=== PATIENT | female | born 1935 | race Caucasian/White ===

== ENCOUNTER → 2017-01-25 | Outpatient (CLI) | payer MEDICARE, OTHER | LOC: OD 10:26 | PROVIDERS: ATTEND Internal Medicine | DX: R07.2 Precordial pain (principal); E78.4 Other hyperlipidemia; I48.0 Paroxysmal atrial fibrillation; I10 Essential (primary) hypertension; E78.00 Pure hypercholesterolemia, unspecified; R01.1 Cardiac murmur, unspecified; R09.89 Other specified symptoms and signs involving the circulatory and respiratory systems; E11.9 Type 2 diabetes mellitus without complications; I50.32 Chronic diastolic (congestive) heart failure; E78.5 Hyperlipidemia, unspecified; Z79.899 Other long term (current) drug therapy | CPT/HCPCS: 36415; 84132 ==

== ENCOUNTER → 2018-04-28 | Outpatient (CLI) | payer MEDICARE, OTHER ==
[2018-04-28 13:36] LABS: ALANINE AMINOTRANSFERASE 17 U/L (9-52); ALBUMIN 3.6 g/dL (3.5-5.0); ALKALINE PHOSPHATASE 60 U/L (38-126); ANION GAP 11 (5-19); ASPARTATE AMINO TRANSFERASE 33 U/L (14-36); BILIRUBIN,DIRECT 0.4 mg/dL (0.0-0.4); BILIRUBIN,TOTAL 0.5 mg/dL (0.2-1.3); BLOOD UREA NITROGEN 37 mg/dL (7-20); CALCIUM 9.9 mg/dL (8.4-10.2); CARBON DIOXIDE 27 mmol/L (22-30); CHLORIDE 107 mmol/L (98-107); CHOLESTEROL 186.16 mg/dL (0-200); GLUCOSE 98 mg/dL (75-110); POTASSIUM 5.3 mmol/L (3.6-5.0); SODIUM 144.6 mmol/L (137-145); TOTAL PROTEIN 7.2 g/dL (6.3-8.2); TRIGLYCERIDES 67 mg/dL (<150)
[2018-04-28 13:47] LABS: DIRECT LDL 63 mg/dL (<100)
== END ==
LOC: OD 12:09
PROVIDERS: ATTEND Internal Medicine
DX: E11.9 Type 2 diabetes mellitus without complications (principal); I48.0 Paroxysmal atrial fibrillation; I11.0 Hypertensive heart disease with heart failure; I50.32 Chronic diastolic (congestive) heart failure; R01.1 Cardiac murmur, unspecified; R09.89 Other specified symptoms and signs involving the circulatory and respiratory systems; R06.09 Other forms of dyspnea; Z79.899 Other long term (current) drug therapy
CPT/HCPCS: 36415; 80053; 80061

== ENCOUNTER 2018-11-09 00:38 | Emergency (ER) | payer MEDICARE, OTHER ==
[2018-11-09 01:04] LABS: ABSOLUTE BASOPHILS # (AUTO) 0.1 10^3/uL (0.0-0.2); ABSOLUTE EOSINOPHILS # (AUTO) 0.5 10^3/uL (0.0-0.6); ABSOLUTE LYMPHOCYTES (AUTO) 3.8 10^3/uL (0.5-4.7); ABSOLUTE MONOCYTES (AUTO) 1.7 10^3/uL (0.1-1.4); ABSOLUTE NEUT (AUTO) 7.8 10^3/uL (1.7-8.2); BASOPHILS % (AUTO) 0.5 % (0-2); EOSINOPHILS % (AUTO) 3.7 % (0-6); HEMATOCRIT 34.4 % (36.0-47.0); HEMOGLOBIN 11.1 g/dL (12.0-15.5); LYMPHOCYTES % (AUTO) 27.2 % (13-45); MEAN CORPUSCULAR HEMOGLOBIN 29.5 pg (27.0-33.4); MEAN CORPUSCULAR HGB CONC 32.1 g/dL (32.0-36.0); MEAN CORPUSCULAR VOLUME 92 fl (80-97); MONOCYTES % (AUTO) 12.4 % (3-13); PLATELET COUNT 364 10^3/uL (150-450); RED BLOOD COUNT 3.75 10^6/uL (3.72-5.28); RED CELL DISTRIBUTION WIDTH 15.1 % (11.5-14.0); SEGMENTED NEUTROPHILS % (AUTO) 56.2 % (42-78); TOTAL CELLS COUNTED % (AUTO) 100 %; WHITE BLOOD COUNT 13.9 10^3/uL (4.0-10.5)
--- NOTE | 2018-11-09 01:27 | RADIOLOGY REPORT (SQ) ---
EXAM DESCRIPTION: XR CHEST 1 VIEW COMPLETED DATE/TME: 11/09/2018 00:45 CLINICAL HISTORY: 83 years, Female, sob COMPARISON: 01/30/2016 chest NUMBER OF VIEWS: 1 TECHNIQUE: Portable chest LIMITATIONS: None. FINDINGS: Cardiomegaly with atheromatous change thoracic aorta. Osteopenia. Stable postsurgical change. No pneumothorax. Lungs are clear IMPRESSION: Stable cardiomegaly and postsurgical change copyright 2010 [employer]- All Rights Reserved
[2018-11-09 01:28] LABS: ANION GAP 10 (5-19); BLOOD UREA NITROGEN 29 mg/dL (7-20); CALCIUM 10.5 mg/dL (8.4-10.2); CARBON DIOXIDE 30 mmol/L (22-30); CHLORIDE 100 mmol/L (98-107); GLUCOSE 112 mg/dL (75-110); POTASSIUM 4.6 mmol/L (3.6-5.0); SODIUM 139.5 mmol/L (137-145)
[2018-11-09 01:42] LABS: NT PRO BNP 2790 pg/mL (<450); TROPONIN I < 0.012 ng/mL
[2018-11-09] MEDS ORDERED: PREDNISONE 20 MG TABLET PO ONE (03:50)
--- NOTE | 2018-11-09 03:50 | ER Document Report ---
ED General - General Chief Complaint: Breathing Difficulty Stated Complaint: TROUBLE BREATHING Time Seen by Provider: 11/09/18 00:45 Primary Care Provider: ISAURA KESSLER MD [Primary Care Provider] - Follow up as needed Notes: Patient is an 83-year-old female with a past medical history of asthma, hypertension, presents complaining of wheezing and feeling short of breath. Apparently she was saturating 87% for EMS, received multiple neb laser treatments and states that her work of breathing has improved significantly and she no longer feels significantly short of breath. Denies any associated chest pain. Has had some mild upper a story symptoms over the last 1 week including nasal congestion and cough. She has Xopenex inhalers at home which she did not use tonight due to concerns that this could send her into A. fib. She denies any lower extremity swelling, chest pain or orthopnea. She has not seen her primary care physician regarding today's concerns. Denies fever or constitutional symptoms. Has had similar symptoms in the past with asthma exacerbations. TRAVEL OUTSIDE OF THE [place] IN LAST 30 DAYS: No - Related Data Allergies/Adverse Reactions: diphenhydramine HCl [From Benadryl] Allergy (Verified 12/14/15 19:49) erythromycin base [Erythromycin Base] Allergy (Verified 12/14/15 19:49) ibuprofen [From Motrin] Allergy (Verified 12/14/15 19:49) oseltamivir phosphate [From Tamiflu] Allergy (Verified 12/14/15 19:48) Past Medical History - General Information source: Patient - Social History Smoking Status: Never Smoker Chew tobacco use (# tins/day): No Frequency of alcohol use: None Drug Abuse: None Lives with: Spouse/Significant other Family History: Reviewed & Not Pertinent Patient has suicidal ideation: No Patient has homicidal ideation: No - Past Medical History Cardiac Medical History: Reports: Hx Atrial Fibrillation, Hx Hypertension Renal/ Medical History: Denies: Hx Peritoneal Dialysis Past Surgical History: Reports: Hx Breast Surgery - Left mastectomy Review of Systems - Review of Systems Notes: Constitutional: Negative for fever. HENT: Negative for sore throat. Eyes: Negative for visual changes. Cardiovascular: Negative for chest pain. Respiratory: Positive for shortness of breath. Gastrointestinal: Negative for abdominal pain, vomiting or diarrhea. Genitourinary: Negative for dysuria. Musculoskeletal: Negative for back pain. Skin: Negative for rash. Neurological: Negative for headaches, weakness or numbness. 10 point ROS negative except as marked above and in HPI. Physical Exam - Vital signs Vitals: Pulse Ox 100 11/09/18 00:49 Interpretation: Normal Notes: PHYSICAL EXAMINATION: GENERAL: Well-appearing, well-nourished and in no acute distress. HEAD: Atraumatic, normocephalic. EYES: Pupils equal round and reactive to light, extraocular movements intact, sclera anicteric, conjunctiva are normal. ENT: nares patent, oropharynx clear without exudates. Moist mucous membranes. NECK: Normal range of motion, supple without lymphadenopathy LUNGS: Breath sounds clear to auscultation bilaterally and equal. Faint expiratory wheezing HEART: Regular rate and rhythm without murmurs ABDOMEN: Soft, nontender, normoactive bowel sounds. No guarding, no rebound. No masses appreciated. EXTREMITIES: Normal range of motion, no pitting or edema. No cyanosis. NEUROLOGICAL: No focal neurological deficits. Moves all extremities spontaneously and on command. PSYCH: Normal mood, normal affect. SKIN: Warm, Dry, normal turgor, no rashes or lesions noted. T Course - Re-evaluation Re-evalutation: 11/09/18 03:50 Patient presents with a mild exacerbation of their baseline asthma. Mild wheezing at time of presentation but vitals do not show significant hypoxemia or tachypnea. No retractions. Patient did clinically improve after receiving nebulizers here in the emergency department. Chest x-ray without evidence of an acute pneumonia. Based on patient's overall reassuring assessment, I believe they are stable for outpatient management with steroids. I do not suspect an acute alternative pathology at this time based on history and exam including acute pulmonary embolus, ACS, pneumothorax, or aortic dissection. BNP mildly elevated although no evidence of pulmonary edema on chest x-ray. No other stigmata of fluid overload. Patient constantly saturates between 94-96% on room air. At this time will discharge with return precautions and follow-up recommendations. Verbal discharge instructions given a the bedside and opportunity for questions given. Medication warnings reviewed. Patient is in agreement with this plan and has verbalized understanding of return precautions and the need for primary care follow-up in the next 24-72 hours. - Vital Signs Vital signs: Temp Pulse Resp BP Pulse Ox 21 H 173/57 H 99 11/09/18 00:53 11/09/18 00:53 11/09/18 01:04 - Laboratory Result Diagrams: 11/09/18 00:50 11/09/18 00:50 Laboratory results interpreted by me: 11/09/18 11/09/18 11/09/18 00:50 00:50 00:50 WBC 13.9 H Hgb 11.1 L Hct 34.4 L RDW 15.1 H Absolute Monocytes 1.7 H BUN 29 H Glucose 112 H Calcium 10.5 H NT-Pro-B Natriuret Pep 2790 H - Diagnostic Test Radiology reviewed: Image reviewed, Reports reviewed Radiology results interpreted by me: 11/09/18 03:51 Chest x-ray: No acute infiltrate or pneumothorax. Cardiomegaly unchanged. Discharge - Discharge Clinical Impression: Shortness of breath Asthma exacerbation Qualifiers: Asthma severity: moderate Asthma persistence: persistent Qualified Code(s): J45.41 - Moderate persistent asthma with (acute) exacerbation Condition: Good Disposition: HOME, SELF-CARE Additional Instructions: You were seen for an asthma exacerbation. Your symptoms improved with treatment here in the emergency department. However, it is very important that you return to the emergency department immediately if you began to have worsening difficulty breathing that does not respond to your normal home nebulizers. You are also being sent home on a five-day course of steroids that you should start taking tomorrow. Please also follow closely with your primary care physician. you should also return to emergency department if you develop fever greater than 101, persistent cough, persistent vomiting, pass out, or any other symptoms that are concerning to you. Prescriptions: Prednisone [Deltasone 20 mg Tablet] 2 tab PO DAILY 5 Days tablet Referrals: ISAURA KESSLER MD [Primary Care Provider] - Follow up tomorrow
[2018-11-09 04:30] VITALS: BP 167/46
--- NOTE | 2018-11-09 12:29 | EKG REPORT ---
SEVERITY:- ABNORMAL ECG - SINUS RHYTHM LEFT BUNDLE BRANCH BLOCK : Confirmed by: iLsa Khan MD 09-Nov-2018 12:28:45
== END 2018-11-09 04:35 | disposition home or self-care (01) ==
LOC: ER 00:38
DX: J45.41 Moderate persistent asthma with (acute) exacerbation (principal); I48.91 Unspecified atrial fibrillation; I10 Essential (primary) hypertension; Z88.3 Allergy status to other anti-infective agents; Z88.6 Allergy status to analgesic agent
CPT/HCPCS: 93005; 99284; 36415; 85025; 80048; 84484; 83880; 71045; 93010; A9270; J7512

== ENCOUNTER 2018-11-09 23:22 | Inpatient (IN) | payer MEDICARE, OTHER ==
[2018-11-09] MEDS ORDERED: LEVALBUTEROL HCL NEB 1.25 MG/3 ML AMPUL NEB ONE (23:34)
--- NOTE | 2018-11-09 23:38 | ER Document Report ---
ED General - General Stated Complaint: SOB Time Seen by Provider: 11/09/18 23:33 Cannot obtain history due to: Unstable vital signs Notes: Patient is an 83-year-old female with past medical history of essential hypertension, asthma, presents complaining of increasing shortness of breath. Patient states she was doing relatively well after discharge yesterday until approximately 1 hour prior to arrival when her wheezing and shortness of breath became abruptly much worse. EMS was contacted. EMS reports the patient was saturating 76% on room air. She was placed on a continuous nebulizer, given magnesium and Solu-Medrol with improvement of her work of breathing. Patient is having difficulty providing history at time of presentation secondary to respiratory distress. TRAVEL OUTSIDE OF THE [place] IN LAST 30 DAYS: No - Related Data Allergies/Adverse Reactions: diphenhydramine HCl [From Benadryl] Allergy (Verified 12/14/15 19:49) erythromycin base [Erythromycin Base] Allergy (Verified 12/14/15 19:49) ibuprofen [From Motrin] Allergy (Verified 12/14/15 19:49) oseltamivir phosphate [From Tamiflu] Allergy (Verified 12/14/15 19:48) Past Medical History - General Information source: Patient, Emergency Med Personnel, [facility] Records Cannot obtain history due to: Unstable vital signs - Social History Smoking Status: Never Smoker Frequency of alcohol use: None Drug Abuse: None Lives with: Spouse/Significant other Family History: Reviewed & Not Pertinent - Past Medical History Cardiac Medical History: Reports: Hx Atrial Fibrillation, Hx Hypertension Renal/ Medical History: Denies: Hx Peritoneal Dialysis Past Surgical History: Reports: Hx Breast Surgery - Left mastectomy Review of Systems - Review of Systems Notes: Constitutional: Negative for fever. HENT: Negative for sore throat. Eyes: Negative for visual changes. Cardiovascular: Negative for chest pain. Respiratory: Positive for shortness of breath and cough. Gastrointestinal: Negative for abdominal pain, vomiting or diarrhea. Genitourinary: Negative for dysuria. Musculoskeletal: Negative for back pain. Skin: Negative for rash. Neurological: Negative for headaches, weakness or numbness. 10 point ROS negative except as marked above and in HPI. Physical Exam - Vital signs Vitals: Pulse Ox 96 11/09/18 23:18 Interpretation: Tachycardic, Hypoxic, Tachypneic Notes: PHYSICAL EXAMINATION: GENERAL: In moderate respiratory distress, appears quite uncomfortable. HEAD: Atraumatic, normocephalic. EYES: Pupils equal round and reactive to light, extraocular movements intact, s clera anicteric, conjunctiva are normal. ENT: nares patent, oropharynx clear without exudates. Moist mucous membranes. NECK: Normal range of motion, supple without lymphadenopathy LUNGS: Coarse wheezing in all lung [place] particularly expiratory phase. Diminished air movement throughout. Moderate to severe respiratory distress breathing 36 times per minute on time of initial assessment. HEART: Regular tachycardia without murmurs ABDOMEN: Soft, nontender, normoactive bowel sounds. No guarding, no rebound. No masses appreciated. EXTREMITIES: Normal range of motion, no pitting or edema. No cyanosis. NEUROLOGICAL: No focal neurological deficits. Moves all extremities spontaneously and on command. PSYCH: Anxious but appropriate to situation SKIN: Warm, Dry, normal turgor, no rashes or lesions noted. Course - Re-evaluation Re-evalutation: 11/09/18 23:36 Patient was assessed immediately upon her arrival. I been at her bedside since arrival. Patient presented in respiratory distress, unable to speak in full sentences, apparently saturating 76% on room air on EMSs initial arrival. I did see this patient yesterday at that time upon discharge she was saturating at 96%, no labored breathing and was able to speak clearly. The patient states that she was doing well today until approximately 1 hour prior to arrival in which she relatively rapidly began having severe wheezing, shortness of breath and coughing. EMS reported that they provided 2 g of magnesium, 125 mg of Solu- Medrol, as well as multiple nebulizers in route to the hospital with significant improvement of the patient's hypoxia but not resolution of her tachypnea or distress. Will obtain repeat chest x-ray, labs, provide ongoing nebulizers and reassess the patient at regular intervals. She will placed on BiPAP to assist with her work of breathing. Patient is in guarded condition, will be reassessed at regular intervals. 11/10/18 00:12 Patient has had improve work of breathing on BiPAP. Tolerating BiPAP much better with 1 mg of lorazepam for anxiolysis. Venous blood gas does show respiratory acidosis secondary to CO2 retention. Chest x-ray appears to show some increase in the right perihilar space relative checks x-ray yesterday. Additional labs are pending. Will continue to reassess the patient at regular intervals. 11/10/18 00:47 Patient's work of breathing has continued to improve on BiPAP. Labs show an up trending of her BNP although her clinical picture is not consistent with pulmonary edema or volume overload. I have discussed this case with Dr. Dom Stark who has accepted the patient to telemetry. - Vital Signs Vital signs: Temp Pulse Resp BP Pulse Ox 19 102/30 L 95 11/10/18 01:01 11/10/18 01:01 11/10/18 01:01 - Laboratory Result Diagrams: 11/09/18 23:28 11/09/18 23:28 Laboratory results interpreted by me: 11/09/18 11/09/18 11/09/18 23:28 23:28 23:28 WBC 12.2 H Hgb 11.4 L Hct 35.3 L RDW 15.3 H Monocytes % 15.2 H Absolute Monocytes 1.9 H VBG pH VBG pCO2 VBG HCO3 Carbon Dioxide 33 H BUN 36 H Est GFR ( Amer) 57 L Est GFR (Non-Af Amer) 47 L Glucose 144 H AST 55 H NT-Pro-B Natriuret Pep 6810 H 11/09/18 23:28 WBC Hgb Hct RDW Monocytes % Absolute Monocytes VBG pH 7.26 L VBG pCO2 77.1 H* VBG HCO3 34.1 H Carbon Dioxide BUN Est GFR ( Amer) Est GFR (Non-Af Amer) Glucose AST NT-Pro-B Natriuret Pep - Diagnostic Test Radiology reviewed: Image reviewed, Reports reviewed Radiology results interpreted by me: 11/10/18 00:47 Chest x-ray: Cardiomegaly, unchanged from previous. - EKG Interpretation by Me Additional EKG results interpreted by me: 11/10/18 00:47 Sinus rhythm, left bundle branch block. Rate 80. Negative scarbosa criteria. QTC 494. Critical Care Note - Critical Care Note Total time excluding time spent on procedures (mins): 45 Comments: Critical care time spent obtaining history from patient or surrogate, discussions with consultants, development of treatment plan with patient or surrogate, evaluation of patient's response to treatment, examination of patient, ordering and performing treatments and interventions, ordering and review of laboratory studies, re-evaluation of patient's condition, ordering and review of radiographic studies and review of old charts Discharge - Discharge Clinical Impression: Shortness of breath, Respiratory distress Asthma exacerbation Qualifiers: Asthma severity: mild Asthma persistence: persistent Qualified Code(s): J45.31 - Mild persistent asthma with (acute) exacerbation Condition: Fair Disposition: ADMITTED INPATIENT Admitting Provider: Hospitalist Unit Admitted: Telemetry
[2018-11-09 23:43] LABS: ABSOLUTE LYMPHOCYTES (AUTO) 4.3 10^3/uL (0.5-4.7); ABSOLUTE MONOCYTES (AUTO) 1.9 10^3/uL (0.1-1.4); BASOPHILS % (AUTO) 0.3 % (0-2); HEMATOCRIT 35.3 % (36.0-47.0); HEMOGLOBIN 11.4 g/dL (12.0-15.5); LYMPHOCYTES % (AUTO) 35.7 % (13-45); MEAN CORPUSCULAR HEMOGLOBIN 29.3 pg (27.0-33.4); MEAN CORPUSCULAR HGB CONC 32.2 g/dL (32.0-36.0); MEAN CORPUSCULAR VOLUME 91 fl (80-97); MONOCYTES % (AUTO) 15.2 % (3-13); PLATELET COUNT 378 10^3/uL (150-450); RED BLOOD COUNT 3.88 10^6/uL (3.72-5.28); RED CELL DISTRIBUTION WIDTH 15.3 % (11.5-14.0); SEGMENTED NEUTROPHILS % (AUTO) 48.8 % (42-78); TOTAL CELLS COUNTED % (AUTO) 100 %; WHITE BLOOD COUNT 12.2 10^3/uL (4.0-10.5)
[2018-11-09 23:46] LABS: VENOUS BLOOD HCO3 34.1 mmol/L (20-32); VENOUS BLOOD PH 7.26 (7.30-7.42)
[2018-11-09 23:49] LABS: VENOUS BLOOD PCO2 77.1 mmHg (35-63)
[2018-11-10] MEDS ORDERED: LORAZEPAM INJ 2 MG/1 ML VIAL IV ONE (00:01)
[2018-11-10 00:14] LABS: ALANINE AMINOTRANSFERASE 32 U/L (9-52); ALBUMIN 4.3 g/dL (3.5-5.0); ALKALINE PHOSPHATASE 81 U/L (38-126); ANION GAP 8 (5-19); ASPARTATE AMINO TRANSFERASE 55 U/L (14-36); BILIRUBIN,DIRECT 0.2 mg/dL (0.0-0.4); BILIRUBIN,TOTAL 0.3 mg/dL (0.2-1.3); BLOOD UREA NITROGEN 36 mg/dL (7-20); CARBON DIOXIDE 33 mmol/L (22-30); CHLORIDE 98 mmol/L (98-107); GLUCOSE 144 mg/dL (75-110); POTASSIUM 4.2 mmol/L (3.6-5.0); SODIUM 138.6 mmol/L (137-145); TOTAL PROTEIN 8.1 g/dL (6.3-8.2)
--- NOTE | 2018-11-10 00:19 | RADIOLOGY REPORT (SQ) ---
EXAM DESCRIPTION: XR CHEST 1 VIEW COMPLETED DATE/TME: 11/09/2018 23:34 CLINICAL HISTORY: 83 years, Female, sob COMPARISON: 11/09/2018 chest x-ray NUMBER OF VIEWS: 1 TECHNIQUE: Portal chest LIMITATIONS: None. FINDINGS: Stable cardiomegaly and atheromatous change. Osteopenia. Atheromatous change thoracic aorta. No pneumothorax. Surgical clips right shoulder and left axilla. Lungs are clear IMPRESSION: No acute cardiopulmonary process copyright 2010 [employer]- All Rights Reserved
[2018-11-10 00:21] LABS: TROPONIN I 0.017 ng/mL
[2018-11-10 00:23] LABS: A TYPE INFLUENZA AG NEGATIVE (NEGATIVE); B INFLUENZA AG NEGATIVE (NEGATIVE)
[2018-11-10] MEDS ORDERED: IPRATROPIUM/ALBUTEROL 0.5-2.5 MG/3 ML AMPUL NEB PRN (00:48)
[2018-11-10] MEDS ORDERED: ENALAPRILAT DIHYDRATE INJ/PF 1.25 MG/1 ML SDV IV PRN (01:00)
[2018-11-10] MEDS: IPRATROPIUM BROMIDE 0.02% NEB 0.5 MG/2.5 ML AMPUL NEB SCH ×4 (01:22→19:22)
[2018-11-10] MEDS: LEVALBUTEROL HCL NEB 1.25 MG/3 ML AMPUL NEB SCH ×4 (01:22→19:22)
--- NOTE | 2018-11-10 01:26 | EKG REPORT ---
SEVERITY:- ABNORMAL ECG - SINUS RHYTHM LEFT BUNDLE BRANCH BLOCK : Confirmed by: Lisa Khan MD 10-Nov-2018 01:25:34
[2018-11-10] MEDS ORDERED: CHLORPHENIRAMINE MALEATE 4 MG TABLET PO ONE (05:25)
--- NOTE | 2018-11-10 05:36 | PDOC H&P ---
History of Present Illness Admission Date/PCP: 11/10/18 01:03 ISAURA KESSLER MD Patient complains of: Shortness of breath and palpitations History of Present Illness: OSCAR KURTZ is a 83 year old female with a past medical history of asthma, morbid obesity, paroxysmal atrial fibrillation, intolerant of Pradaxa and Xarelto secondary to GI and epistasis bleed, on aspirin and Plavix. She presents to the emergency department following 48 hours of rhinorrhea, postnasal drip, palpitations and shortness of breath. She is found to have hypoxia and oxygen saturations of 76% on room air and a BNP of 6810. Patient denies GERD, sore throat, productive cough, chest pain, nausea nausea or vomiting, missing medications or new medication regiment. She receives oxygen, Xopenex and BiPAP and referred to the hospitalist for admission. She admits recent echocardiogram with project manager finance Dr. Khan. Past Medical History Cardiac Medical History: Reports: Atrial Fibrillation, Hypertension Pulmonary Medical History: Reports: Asthma Endocrine Medical History: Reports: Obesity Social History Information Source: Patient, Relative, H Records, Outside Facility Records Lives with: Spouse/Significant other Smoking Status: Never Smoker Frequency of Alcohol Use: None Hx Recreational Drug Use: No Drugs: None Hx Prescription Drug Abuse: No - Advance Directive Resuscitation Status: Full Code Family History Family History: Hypertension Parental Family History Reviewed: Yes Children Family History Reviewed: Yes Sibling(s) Family History Reviewed.: Yes Medication/Allergy Home Medications: Aspirin [Adult Low Dose Aspirin EC] 81 mg PO DAILY 12/14/15 Calcium Carbonate/Vitamin D3 [Calcium 500-Vit D3 200 Caplet] 1 tab PO BID 12/14/15 Clopidogrel Bisulfate [Clopidogrel] 75 mg PO DAILY 12/14/15 Docusate Sodium 100 mg PO QHS 12/14/15 Levalbuterol Tartrate [Xopenex Hfa] 2 puff IH Q4 PRN 12/15/15 Atorvastatin Calcium [Lipitor 10 mg Tablet] 10 mg PO QHS #30 tablet 01/02/16 Budesonide/Formoterol Fumarate [Symbicort HFA 80-4.5 mcg Inhaler 6.9 gm] 2 puff IH Q12 #1 inhaler 01/02/16 Lisinopril 20 mg PO DAILY #30 tablet 01/02/16 Metoprolol Succinate [Toprol Xl 50 mg Tab.sr] 100 mg PO Q12 #30 tab.sr.24h 01/02/16 Prednisone [Deltasone 20 mg Tablet] 2 tab PO DAILY 5 Days tablet 11/09/18 Allergies/Adverse Reactions: diphenhydramine HCl [From Benadryl] Allergy (Verified 12/14/15 19:49) erythromycin base [Erythromycin Base] Allergy (Verified 12/14/15 19:49) ibuprofen [From Motrin] Allergy (Verified 12/14/15 19:49) oseltamivir phosphate [From Tamiflu] Allergy (Verified 12/14/15 19:48) Review of Systems Constitutional: ABSENT: chills, fever(s), headache(s), weight gain, weight loss Eyes: ABSENT: visual disturbances Ears: ABSENT: hearing changes Cardiovascular: ABSENT: chest pain, dyspnea on exertion, edema, orthropnea, palpitations Respiratory: ABSENT: cough, hemoptysis Gastrointestinal: ABSENT: abdominal pain, constipation, diarrhea, hematemesis, hematochezia, nausea, vomiting Genitourinary: ABSENT: dysuria, hematuria Musculoskeletal: ABSENT: joint swelling Integumentary: ABSENT: rash, wounds Neurological: ABSENT: abnormal gait, abnormal speech, confusion, dizziness, focal weakness, syncope Psychiatric: ABSENT: anxiety, depression, homidical ideation, suicidal ideation Endocrine: ABSENT: cold intolerance, heat intolerance, polydipsia, polyuria Hematologic/Lymphatic: ABSENT: easy bleeding, easy bruising Physical Exam Vital Signs: Temp Pulse Resp BP Pulse Ox 18 114/34 L 96 11/10/18 04:01 11/10/18 04:01 11/10/18 04:01 Intake & Output 11/08/18 11/09/18 11/10/18 10:59 11:59 11:59 Weight 102 kg General appearance: PRESENT: cooperative, mild distress, morbidly obese, well- developed, well-nourished Head exam: PRESENT: atraumatic, normocephalic Eye exam: PRESENT: conjunctiva pink, EOMI, PERRLA. ABSENT: scleral icterus Ear exam: PRESENT: normal external ear exam Mouth exam: PRESENT: moist, tongue midline Neck exam: ABSENT: carotid bruit, JVD, lymphadenopathy, thyromegaly Respiratory exam: PRESENT: accessory muscle use, crackles, symmetrical, wheezes Cardiovascular exam: PRESENT: RRR, +S1, +S2 Pulses: PRESENT: normal dorsalis pedis pul Vascular exam: PRESENT: normal capillary refill GI/Abdominal exam: PRESENT: normal bowel sounds, soft. ABSENT: distended, guarding, mass, organolmegaly, rebound, tenderness Rectal exam: PRESENT: deferred Extremities exam: PRESENT: full ROM. ABSENT: calf tenderness, clubbing, pedal edema Neurological exam: PRESENT: alert, awake, oriented to person, oriented to place, oriented to time, oriented to situation, CN II-XII grossly intact. ABSENT: motor sensory deficit Psychiatric exam: PRESENT: appropriate affect, normal mood. ABSENT: homicidal ideation, suicidal ideation Skin exam: PRESENT: dry, intact, warm. ABSENT: cyanosis, rash Results Laboratory Results: 11/09/18 23:28 11/09/18 23:28 11/09/18 11/09/18 11/09/18 23:28 23:28 23:28 WBC 12.2 H RBC 3.88 Hgb 11.4 L Hct 35.3 L MCV 91 MCH 29.3 MCHC 32.2 RDW 15.3 H Plt Count 378 Seg Neutrophils % 48.8 Lymphocytes % 35.7 Monocytes % 15.2 H Eosinophils % 0.0 Basophils % 0.3 Absolute Neutrophils 6.0 Absolute Lymphocytes 4.3 Absolute Monocytes 1.9 H Absolute Eosinophils 0.0 Absolute Basophils 0.0 VBG pH VBG pCO2 VBG HCO3 VBG Base Excess Sodium 138.6 Potassium 4.2 Chloride 98 Carbon Dioxide 33 H Anion Gap 8 BUN 36 H Creatinine 1.11 Est GFR ( Amer) 57 L Est GFR (Non-Af Amer) 47 L Glucose 144 H Lactic Acid 1.2 Calcium 10.0 Total Bilirubin 0.3 AST 55 H ALT 32 Alkaline Phosphatase 81 Total Protein 8.1 Albumin 4.3 TSH 11/09/18 11/09/18 23:28 23:28 WBC RBC Hgb Hct MCV MCH MCHC RDW Plt Count Seg Neutrophils % Lymphocytes % Monocytes % Eosinophils % Basophils % Absolute Neutrophils Absolute Lymphocytes Absolute Monocytes Absolute Eosinophils Absolute Basophils VBG pH 7.26 L VBG pCO2 77.1 H* VBG HCO3 34.1 H VBG Base Excess 5.0 Sodium Potassium Chloride Carbon Dioxide Anion Gap BUN Creatinine Est GFR ( Amer) Est GFR (Non-Af Amer) Glucose Lactic Acid Calcium Total Bilirubin AST ALT Alkaline Phosphatase Total Protein Albumin TSH 2.30 11/09/18 11/09/18 11/09/18 23:28 23:28 23:28 Creatine Kinase 81 CK-MB (CK-2) 2.35 Troponin I 0.017 Cancelled NT-Pro-B Natriuret Pep 6810 H Impressions: Chest X-Ray 11/09/18 23:34 IMPRESSION: No acute cardiopulmonary process copyright 2010 [employer]- All Rights Reserved Assessment & Plan - Diagnosis (1) Asthma exacerbation Qualifiers: Asthma severity: mild Asthma persistence: persistent Qualified Code(s): J45.31 - Mild persistent asthma with (acute) exacerbation Is this a current diagnosis for this admission?: Yes Plan: Likely secondary to allergic sinusitis with postnasal drip. Denies cough, sore throat, uncontrolled GERD. Chlorpheniramine, Xopenex ordered, incentive spirometry and BiPAP. Consider prednisone (2) Atrial fibrillation Is this a current diagnosis for this admission?: Yes Plan: Currently rate controlled but does admit episodes of palpitations. Possibly contributing to elevated BNP. Telemetry monitoring, consider additional or increased beta-lakia dose as tolerated. Continue Plavix and aspirin, history of GI and epistasis bleed (3) Sinusitis Is this a current diagnosis for this admission?: Yes Plan: Flonase and chlorpheniramine trial (4) Respiratory distress Is this a current diagnosis for this admission?: Yes Plan: Multifactorial secondary to asthma exacerbation and CHF. Appears compensated from heart failure standpoint. (5) CHF (congestive heart failure) Qualifiers: Qualified Code(s): I50.9 - Heart failure, unspecified Is this a current diagnosis for this admission?: Yes Plan: Appears compensated from heart failure standpoint, telemetry monitoring to evaluate for episodes of paroxysmal A. fib. - Time Time Spent: 50 to 70 Minutes - Inpatient Certification Medical Necessity: Need Close Monitoring Due to Risk of Patient Decompensation
[2018-11-10] MEDS: HEPARIN SOD (PORCINE) 5,000 UNIT/ML 1 ML SYRINGE SUBCUT SCH ×3 (05:43→21:14)
[2018-11-10 05:47] LABS: ABSOLUTE MONOCYTES (AUTO) 0.2 10^3/uL (0.1-1.4); ABSOLUTE NEUT (AUTO) 8.5 10^3/uL (1.7-8.2); BASOPHILS % (AUTO) 0.2 % (0-2); HEMATOCRIT 31.9 % (36.0-47.0); HEMOGLOBIN 10.4 g/dL (12.0-15.5); LYMPHOCYTES % (AUTO) 9.8 % (13-45); MEAN CORPUSCULAR HEMOGLOBIN 29.6 pg (27.0-33.4); MEAN CORPUSCULAR HGB CONC 32.6 g/dL (32.0-36.0); MEAN CORPUSCULAR VOLUME 91 fl (80-97); MONOCYTES % (AUTO) 2.6 % (3-13); PLATELET COUNT 333 10^3/uL (150-450); RED BLOOD COUNT 3.51 10^6/uL (3.72-5.28); RED CELL DISTRIBUTION WIDTH 15.5 % (11.5-14.0); SEGMENTED NEUTROPHILS % (AUTO) 87.4 % (42-78); TOTAL CELLS COUNTED % (AUTO) 100 %; WHITE BLOOD COUNT 9.8 10^3/uL (4.0-10.5)
[2018-11-10 06:03] LABS: ANION GAP 11 (5-19); BLOOD UREA NITROGEN 39 mg/dL (7-20); CARBON DIOXIDE 26 mmol/L (22-30); CHLORIDE 101 mmol/L (98-107); CREATINE KINASE 62 U/L (30-135); GLUCOSE 183 mg/dL (75-110); POTASSIUM 4.5 mmol/L (3.6-5.0); SODIUM 137.7 mmol/L (137-145)
[2018-11-10 06:15] LABS: CREATINE KINASE MB 1.96 ng/mL (<4.55); TROPONIN I 0.021 ng/mL
[2018-11-10 06:44] LABS: ABSOLUTE RETICS # 0.056 10^6/uL (0.028-0.122); RETICULOCYTE COUNT (AUTO) 1.59 % (0.66-2.85)
[2018-11-10] MEDS: LISINOPRIL 10 MG TABLET PO SCH (09:55)
[2018-11-10] MEDS: METOPROLOL SUCCINATE 50 MG TAB.SR.24H PO SCH ×2 (09:55→21:16)
[2018-11-10] MEDS: POTASSIUM CHLORIDE 10 MEQ CAPSULE.ER PO SCH ×2 (09:56→21:14)
[2018-11-10] MEDS: ASPIRIN 81 MG TABLET, ENT COATED PO SCH (09:57)
[2018-11-10] MEDS: CLOPIDOGREL BISULFATE 75 MG TABLET PO SCH (09:57)
[2018-11-10] MEDS ORDERED: FUROSEMIDE INJ/PF 40 MG/4 ML SDV IV SCH (10:00)
[2018-11-10] MEDS ORDERED: FLUTICASONE/VILANTEROL 200-25 MCG/DOSE IH SCH (10:00)
[2018-11-10] MEDS: NITROGLYCERIN 2.5 MG (0.1 MG/HR) PATCH.TD24 TD SCH (10:45)
[2018-11-10 11:11] LABS: IRON(TIBC) 17.5 ug/dL (37-170)
[2018-11-10] MEDS: FLUTICASONE NASAL SPRAY 50 MCG/SPRY 120 SPRAY/16 GM NASL SCH ×2 (11:13→21:14)
[2018-11-10] MEDS: FLUTICASONE/VILANTEROL 100-25 MCG/DOSE IH SCH (11:14)
[2018-11-10 12:25] LABS: FOLATE > 20.00 ng/mL (>2.76)
[2018-11-10 12:25] LABS: CREATINE KINASE MB 2.01 ng/mL (<4.55); TROPONIN I 0.016 ng/mL
--- NOTE | 2018-11-10 15:02 | Progress Note ---
Provider Note Provider Note: This is a 83 year old female with a past medical history of asthma, morbid obesity, paroxysmal atrial fibrillation, intolerant of Pradaxa and Xarelto secondary to GI and epistasis bleed, on aspirin and Plavix. Presents with chief complaint of shortness of breath and wheezing. With impression of bronchial asthma acute exacerbation patient has been managed accordingly. I seen patient this afternoon resting in bed comfortably and she reports this her shortness of breath is relatively better. Accept this patient will be her primary attending.
[2018-11-10] MEDS: DOCUSATE SODIUM 100 MG CAPSULE PO SCH (21:14)
[2018-11-10] MEDS: ATORVASTATIN CALCIUM 10 MG TABLET PO SCH (21:14)
[2018-11-11] MEDS: ACETAMINOPHEN 325 MG TABLET PO PRN ×3 (00:03→18:11)
[2018-11-11] MEDS: LEVALBUTEROL HCL NEB 1.25 MG/3 ML AMPUL NEB SCH ×4 (02:24→19:39)
[2018-11-11] MEDS: IPRATROPIUM BROMIDE 0.02% NEB 0.5 MG/2.5 ML AMPUL NEB SCH ×4 (02:24→19:39)
[2018-11-11] MEDS: HEPARIN SOD (PORCINE) 5,000 UNIT/ML 1 ML SYRINGE SUBCUT SCH ×3 (05:03→21:24)
[2018-11-11 05:49] LABS: HEMATOCRIT 31.4 % (36.0-47.0); HEMOGLOBIN 10.1 g/dL (12.0-15.5); MEAN CORPUSCULAR HEMOGLOBIN 29.5 pg (27.0-33.4); MEAN CORPUSCULAR HGB CONC 32.2 g/dL (32.0-36.0); MEAN CORPUSCULAR VOLUME 92 fl (80-97); PLATELET COUNT 316 10^3/uL (150-450); RED BLOOD COUNT 3.43 10^6/uL (3.72-5.28); RED CELL DISTRIBUTION WIDTH 15.4 % (11.5-14.0); WHITE BLOOD COUNT 9.8 10^3/uL (4.0-10.5)
[2018-11-11 05:54] LABS: BLOOD UREA NITROGEN 49 mg/dL (7-20); CALCIUM 9.4 mg/dL (8.4-10.2); CARBON DIOXIDE 31 mmol/L (22-30); GLUCOSE 102 mg/dL (75-110)
[2018-11-11 06:06] LABS: CHLORIDE 102 mmol/L (98-107); SODIUM 137.2 mmol/L (137-145)
[2018-11-11 06:12] LABS: ANION GAP 4 (5-19); POTASSIUM 5.6 mmol/L (3.6-5.0)
[2018-11-11 07:01] LABS: ABSOLUTE LYMPHOCYTES# (MANUAL) 2.2 10^3/uL (0.5-4.7); ABSOLUTE MONOCYTES # (MANUAL) 1.1 10^3/uL (0.1-1.4); ABSOLUTE NEUTROPHILS# (MANUAL) 6.6 10^3/uL (1.7-8.2); BASOPHILS % (MANUAL) 0 % (0-2); EOSINOPHILS % (MANUAL) 0 % (0-6); LYMPHOCYTES % (MANUAL) 22 % (13-45); MONOCYTES % (MANUAL) 11 % (3-13); SEGMENTED NEUTROPHILS % (MAN) 67 % (42-78); TOTAL CELLS COUNTED 100
[2018-11-11 07:04] LABS: POLYCHROMASIA SLIGHT; TOXIC GRANULATION SLIGHT; TOXIC VACUOLATION PRESENT
[2018-11-11 07:07] LABS: OVALOCYTES 1+; POIKILOCYTOSIS 1+; TEAR DROP CELLS SLIGHT
[2018-11-11 07:08] LABS: PLATELET COMMENT ADEQUATE
[2018-11-11] MEDS ORDERED: ACETAMINOPHEN 325 MG TABLET PO PRN (09:21)
[2018-11-11] MEDS: NITROGLYCERIN 2.5 MG (0.1 MG/HR) PATCH.TD24 TD SCH (09:36)
[2018-11-11] MEDS: POTASSIUM CHLORIDE 10 MEQ CAPSULE.ER PO SCH (09:36)
[2018-11-11] MEDS: LISINOPRIL 10 MG TABLET PO SCH (09:36)
[2018-11-11] MEDS: METHYLPREDNISOLONE INJ 40 MG/1 ML SDV IV SCH ×2 (09:43→21:24)
[2018-11-11] MEDS: CLOPIDOGREL BISULFATE 75 MG TABLET PO SCH (09:43)
[2018-11-11] MEDS: IRON POLYSACCHARIDES COMPLEX 150 MG CAPSULE PO SCH (09:43)
[2018-11-11] MEDS: ASPIRIN 81 MG TABLET, ENT COATED PO SCH (09:43)
[2018-11-11] MEDS: METOPROLOL SUCCINATE 50 MG TAB.SR.24H PO SCH ×2 (09:43→21:25)
[2018-11-11] MEDS: FLUTICASONE/VILANTEROL 100-25 MCG/DOSE IH SCH (09:44)
[2018-11-11] MEDS: FLUTICASONE NASAL SPRAY 50 MCG/SPRY 120 SPRAY/16 GM NASL SCH ×2 (09:44→21:25)
--- NOTE | 2018-11-11 10:00 | PDOC PROGRESS REPORT ---
Subjective Progress Note for:: 11/11/18 Subjective:: This is an 83 year old female with a past medical history of asthma, morbid obesity, paroxysmal atrial fibrillation, intolerant of Pradaxa and Xarelto secondary to GI and epistaxis bleed, on aspirin and Plavix who presented with rhinorrhea, postnasal drip and worsneing shortness of breath. She was admitted for COPD exacerbation. No acute event overnight. She says she still has SOB today. Appears not to be on steroids. Will add solumedrol today. Denies chest pain. Reason For Visit: COPD, HEART FAILURE Physical Exam Vital Signs: Temp Pulse Resp BP Pulse Ox 99.1 F 64 15 146/38 H 98 11/11/18 07:53 11/11/18 08:03 11/11/18 08:03 11/11/18 07:53 11/11/18 08:03 Intake & Output 11/10/18 11/11/18 11/12/18 06:59 06:59 06:59 Weight 224 lb 13.944 oz 183 lb 13.848 oz General appearance: PRESENT: no acute distress, well-developed, well-nourished Head exam: PRESENT: atraumatic, normocephalic Eye exam: PRESENT: conjunctiva pink, EOMI, PERRLA. ABSENT: scleral icterus Ear exam: PRESENT: normal external ear exam Mouth exam: PRESENT: moist, tongue midline Neck exam: ABSENT: carotid bruit, JVD, lymphadenopathy, thyromegaly Respiratory exam: PRESENT: wheezes. ABSENT: rales, rhonchi Cardiovascular exam: PRESENT: RRR. ABSENT: diastolic murmur, rubs, systolic murmur Pulses: PRESENT: normal dorsalis pedis pul GI/Abdominal exam: PRESENT: normal bowel sounds, soft. ABSENT: distended, guard ing, mass, organolmegaly, rebound, tenderness Rectal exam: PRESENT: deferred Neurological exam: PRESENT: alert, awake, oriented to person, oriented to place, oriented to time, oriented to situation, CN II-XII grossly intact. ABSENT: motor sensory deficit Results Laboratory Results: 11/11/18 04:49 11/11/18 04:49 11/10/18 11/11/18 11/11/18 10:30 04:49 04:49 WBC 9.8 RBC 3.43 L Hgb 10.1 L Hct 31.4 L MCV 92 MCH 29.5 MCHC 32.2 RDW 15.4 H Plt Count 316 Seg Neutrophils % Not Reportable Lymphocytes % Not Reportable Monocytes % Not Reportable Eosinophils % Not Reportable Basophils % Not Reportable Absolute Neutrophils Not Reportable Absolute Lymphocytes Not Reportable Absolute Monocytes Not Reportable Absolute Eosinophils Not Reportable Absolute Basophils Not Reportable Sodium 137.2 Potassium 5.6 H D Chloride 102 Carbon Dioxide 31 H Anion Gap 4 L BUN 49 H Creatinine 1.24 Est GFR ( Amer) 50 L Est GFR (Non-Af Amer) 41 L Glucose 102 Calcium 9.4 Iron 17.5 L TIBC 379 % Saturation 5 Ferritin 17.00 Vitamin B12 529.0 Folate > 20.00 11/09/18 11/09/18 11/09/18 23:28 23:28 23:28 Creatine Kinase 81 CK-MB (CK-2) 2.35 Troponin I 0.017 Cancelled NT-Pro-B Natriuret Pep 6810 H 11/10/18 11/10/18 11/10/18 05:39 05:39 11:28 Creatine Kinase 62 52 CK-MB (CK-2) 1.96 Troponin I 0.021 NT-Pro-B Natriuret Pep 11/10/18 11:28 Creatine Kinase CK-MB (CK-2) 2.01 Troponin I 0.016 NT-Pro-B Natriuret Pep Impressions: Chest X-Ray 11/09/18 23:34 IMPRESSION: No acute cardiopulmonary process copyright 2011 [employer]- All Rights Reserved Assessment & Plan - Diagnosis (1) Asthma exacerbation Qualifiers: Asthma severity: mild Asthma persistence: persistent Qualified Code(s): J45.31 - Mild persistent asthma with (acute) exacerbation Is this a current diagnosis for this admission?: Yes Plan: Will add solumedrol today. Continue breathing treatments. (2) Paroxysmal atrial fibrillation Is this a current diagnosis for this admission?: Yes Plan: Currently in sinus rhythm. Taken off anticoagulation due to recurrent epistaxis and GI bleed. (3) Hyperkalemia Is this a current diagnosis for this admission?: Yes Plan: Potassium is 5.6 this morning. No peaked T wave son telemetry. Will repeat Potassium this afternoon. Appears she was started on PO Potassium, unsure why. Will DC Potassium PO. - Time Time Spent with patient: 25-34 minutes
[2018-11-11] MEDS: DOCUSATE SODIUM 100 MG CAPSULE PO SCH (21:25)
[2018-11-11] MEDS: ATORVASTATIN CALCIUM 10 MG TABLET PO SCH (21:25)
[2018-11-12] MEDS: LEVALBUTEROL HCL NEB 1.25 MG/3 ML AMPUL NEB SCH ×4 (01:52→19:15)
[2018-11-12] MEDS: IPRATROPIUM BROMIDE 0.02% NEB 0.5 MG/2.5 ML AMPUL NEB SCH ×4 (01:52→19:15)
[2018-11-12] MEDS: HEPARIN SOD (PORCINE) 5,000 UNIT/ML 1 ML SYRINGE SUBCUT SCH ×3 (05:05→21:30)
[2018-11-12 07:41] LABS: HEMATOCRIT 31.9 % (36.0-47.0); MEAN CORPUSCULAR HEMOGLOBIN 29.4 pg (27.0-33.4); MEAN CORPUSCULAR HGB CONC 31.4 g/dL (32.0-36.0); MEAN CORPUSCULAR VOLUME 94 fl (80-97); PLATELET COUNT 292 10^3/uL (150-450); RED CELL DISTRIBUTION WIDTH 15.2 % (11.5-14.0); WHITE BLOOD COUNT 9.5 10^3/uL (4.0-10.5)
[2018-11-12 08:12] LABS: BLOOD UREA NITROGEN 47 mg/dL (7-20); CALCIUM 9.3 mg/dL (8.4-10.2); CARBON DIOXIDE 33 mmol/L (22-30); CHLORIDE 103 mmol/L (98-107); GLUCOSE 127 mg/dL (75-110); POTASSIUM 5.7 mmol/L (3.6-5.0); SODIUM 137.5 mmol/L (137-145)
[2018-11-12 08:16] LABS: ANION GAP 2 (5-19)
[2018-11-12] MEDS: LISINOPRIL 10 MG TABLET PO SCH (10:22)
[2018-11-12] MEDS: NITROGLYCERIN 2.5 MG (0.1 MG/HR) PATCH.TD24 TD SCH (10:56)
[2018-11-12] MEDS: METOPROLOL SUCCINATE 50 MG TAB.SR.24H PO SCH ×2 (10:57→21:31)
[2018-11-12] MEDS: METHYLPREDNISOLONE INJ 40 MG/1 ML SDV IV SCH ×2 (11:02→21:31)
[2018-11-12] MEDS: FLUTICASONE/VILANTEROL 100-25 MCG/DOSE IH SCH (11:03)
[2018-11-12] MEDS: CLOPIDOGREL BISULFATE 75 MG TABLET PO SCH (11:03)
[2018-11-12] MEDS: ASPIRIN 81 MG TABLET, ENT COATED PO SCH (11:03)
[2018-11-12] MEDS: IRON POLYSACCHARIDES COMPLEX 150 MG CAPSULE PO SCH (11:03)
[2018-11-12] MEDS: FLUTICASONE NASAL SPRAY 50 MCG/SPRY 120 SPRAY/16 GM NASL SCH ×2 (11:03→21:29)
[2018-11-12] MEDS ORDERED: DEXTROSE 50%-WATER 25 GM/50 ML DISP.SYRIN IV ONE (14:45)
[2018-11-12] MEDS ORDERED: SODIUM POLYSTYRENE SULFONATE 15 GM/60 ML PO ONE (14:45)
[2018-11-12] MEDS ORDERED: INSULIN REG, HUMAN 100 UNIT/ML 3 ML VIAL (PYX) IV ONE (14:45)
[2018-11-12] MEDS ORDERED: CALCIUM GLUCONATE 1000 MG/10 ML INJ IV ONE (14:45)
--- NOTE | 2018-11-12 15:02 | PDOC PROGRESS REPORT ---
Subjective Progress Note for:: 11/12/18 Subjective:: This is an 83 year old female with a past medical history of asthma, previous smoker, CHF (last known EF 42%), morbid obesity, paroxysmal atrial fibrillation, intolerant of Pradaxa and Xarelto secondary to GI and epistaxis bleed, on aspirin and Plavix who presented with rhinorrhea, postnasal drip and worsening shortness of breath. She was admitted for COPD exacerbation. 11/11: She says she still has SOB today. Appears not to be on steroids. Will add solumedrol today. Denies chest pain. 11/12: No acute event overnight. She says her shortness of breath has improved today. She is now coughing out light yellowish sputum. Denies chest pain. She has bilateral wheezes today slightly improved from yesterday. Reason For Visit: COPD, HEART FAILURE Physical Exam Vital Signs: Temp Pulse Resp BP Pulse Ox 98.5 F 67 16 149/38 H 93 11/12/18 10:51 11/12/18 14:21 11/12/18 14:21 11/12/18 10:51 11/12/18 14:21 Intake & Output 11/11/18 11/12/18 11/13/18 06:59 06:59 06:59 Intake Total 890 354 Balance 890 354 Weight 183 lb 13.848 oz 184 lb 8.43 oz General appearance: PRESENT: no acute distress, well-developed, well-nourished Head exam: PRESENT: atraumatic, normocephalic Eye exam: PRESENT: conjunctiva pink, EOMI, PERRLA. ABSENT: scleral icterus Ear exam: PRESENT: normal external ear exam Mouth exam: PRESENT: moist, tongue midline Neck exam: ABSENT: carotid bruit, JVD, lymphadenopathy, thyromegaly Respiratory exam: PRESENT: wheezes. ABSENT: rales, rhonchi Cardiovascular exam: PRESENT: RRR. ABSENT: diastolic murmur, rubs, systolic murmur Pulses: PRESENT: normal dorsalis pedis pul GI/Abdominal exam: PRESENT: normal bowel sounds, soft. ABSENT: distended, guarding, mass, organolmegaly, rebound, tenderness Rectal exam: PRESENT: deferred Neurological exam: PRESENT: alert, awake, oriented to person, oriented to place, oriented to time, oriented to situation, CN II-XII grossly intact. ABSENT: motor sensory deficit Results Laboratory Results: 11/12/18 06:30 11/12/18 06:30 11/12/18 11/12/18 06:30 06:30 WBC 9.5 RBC 3.40 L Hgb 10.0 L Hct 31.9 L MCV 94 MCH 29.4 MCHC 31.4 L RDW 15.2 H Plt Count 292 Sodium 137.5 Potassium 5.7 H Chloride 103 Carbon Dioxide 33 H Anion Gap 2 L BUN 47 H Creatinine 0.95 Est GFR ( Amer) > 60 Est GFR (Non-Af Amer) 56 L Glucose 127 H Calcium 9.3 11/09/18 11/09/18 11/09/18 23:28 23:28 23:28 Creatine Kinase 81 CK-MB (CK-2) 2.35 Troponin I 0.017 Cancelled NT-Pro-B Natriuret Pep 6810 H 11/10/18 11/10/18 11/10/18 05:39 05:39 11:28 Creatine Kinase 62 52 CK-MB (CK-2) 1.96 Troponin I 0.021 NT-Pro-B Natriuret Pep 11/10/18 11:28 Creatine Kinase CK-MB (CK-2) 2.01 Troponin I 0.016 NT-Pro-B Natriuret Pep Impressions: Chest X-Ray 11/09/18 23:34 IMPRESSION: No acute cardiopulmonary process copyright 2010 [employer]- All Rights Reserved Assessment & Plan - Diagnosis (1) Asthma exacerbation Qualifiers: Asthma severity: mild Asthma persistence: persistent Qualified Code(s): J45.31 - Mild persistent asthma with (acute) exacerbation Is this a current diagnosis for this admission?: Yes Plan: 11/11: She is not on steroids. Will add solumedrol today. Continue breathing treatments. 11/13: Continue solumedrol and breathing treatments. (2) Paroxysmal atrial fibrillation Is this a current diagnosis for this admission?: Yes Plan: Currently in sinus rhythm. Taken off anticoagulation due to recurrent epistaxis and GI bleed. (3) Hyperkalemia Is this a current diagnosis for this admission?: Yes Plan: Potassium is 5.6 this morning. No peaked T wave son telemetry. Will repeat Potas sium this afternoon. 11/11: Appears she was started on PO Potassium, unsure why. Will DC Potassium PO. 11/12: Potassium at 5.7. Potassium was dc/d yesterday. Lisinopril held. Will give a dextrose-insulin regimen and a dose of Kayexalate. Repeat Potassium later today. - Time Time Spent with patient: 25-34 minutes
[2018-11-12] MEDS: FUROSEMIDE INJ/PF 20 MG/2 ML SDV IV SCH ×2 (16:40→21:31)
[2018-11-12] MEDS ORDERED: PATIROMER 8.4 GM SUSP PACKET PO ONE (17:15)
[2018-11-12] MEDS: ATORVASTATIN CALCIUM 10 MG TABLET PO SCH (21:31)
[2018-11-12] MEDS: DOCUSATE SODIUM 100 MG CAPSULE PO SCH (21:31)
[2018-11-13] MEDS: IPRATROPIUM BROMIDE 0.02% NEB 0.5 MG/2.5 ML AMPUL NEB SCH ×4 (02:11→19:19)
[2018-11-13] MEDS: LEVALBUTEROL HCL NEB 1.25 MG/3 ML AMPUL NEB SCH ×4 (02:11→19:19)
[2018-11-13] MEDS: HEPARIN SOD (PORCINE) 5,000 UNIT/ML 1 ML SYRINGE SUBCUT SCH (05:13)
[2018-11-13 05:59] LABS: BLOOD UREA NITROGEN 56 mg/dL (7-20); CALCIUM 10.6 mg/dL (8.4-10.2); CARBON DIOXIDE 32 mmol/L (22-30); CHLORIDE 101 mmol/L (98-107); GLUCOSE 151 mg/dL (75-110); POTASSIUM 5.3 mmol/L (3.6-5.0); SODIUM 135.4 mmol/L (137-145)
[2018-11-13 06:08] LABS: ANION GAP 3 (5-19)
--- NOTE | 2018-11-13 08:44 | RADIOLOGY REPORT (SQ) ---
EXAM DESCRIPTION: CHEST SINGLE VIEW COMPLETED DATE/TIME: 11/13/2018 8:34 am REASON FOR STUDY: assess for congestion COMPARISON: 11/09/2018. NUMBER OF VIEWS: One view. TECHNIQUE: Single frontal radiographic view of the chest acquired. LIMITATIONS: None. FINDINGS: LUNGS AND PLEURA: No opacities, masses or pneumothorax. No pleural effusion. MEDIASTINUM AND HILAR STRUCTURES: No masses. Contour normal. HEART AND VASCULAR STRUCTURES: Heart enlarged without failure. Normal vasculature. BONES: No acute findings. HARDWARE: Clips in the soft tissues on the left. Hardware in the right shoulder. OTHER: No other significant finding. IMPRESSION: HEART ENLARGED WITHOUT FAILURE. NO OTHER SIGNIFICANT RADIOGRAPHIC FINDING IN THE CHEST. TECHNICAL DOCUMENTATION: JOB ID: [id number] [employer]- All Rights Reserved Reading location - IP/workstation name: [email or web address]
[2018-11-13] MEDS: NITROGLYCERIN 2.5 MG (0.1 MG/HR) PATCH.TD24 TD SCH (09:21)
[2018-11-13] MEDS: ASPIRIN 81 MG TABLET, ENT COATED PO SCH (09:23)
[2018-11-13] MEDS: METOPROLOL SUCCINATE 50 MG TAB.SR.24H PO SCH ×2 (09:23→21:20)
[2018-11-13] MEDS: IRON POLYSACCHARIDES COMPLEX 150 MG CAPSULE PO SCH (09:23)
[2018-11-13] MEDS: CLOPIDOGREL BISULFATE 75 MG TABLET PO SCH (09:23)
[2018-11-13] MEDS: FUROSEMIDE INJ/PF 20 MG/2 ML SDV IV SCH (09:23)
[2018-11-13] MEDS: METHYLPREDNISOLONE INJ 40 MG/1 ML SDV IV SCH (09:23)
[2018-11-13] MEDS: FLUTICASONE/VILANTEROL 100-25 MCG/DOSE IH SCH (09:23)
[2018-11-13] MEDS: FLUTICASONE NASAL SPRAY 50 MCG/SPRY 120 SPRAY/16 GM NASL SCH ×2 (09:23→21:20)
[2018-11-13] MEDS: FONDAPARINUX SODIUM INJ 2.5 MG/0.5 ML DISP.SYRIN SUBCUT SCH (10:17)
--- NOTE | 2018-11-13 15:24 | PDOC PROGRESS REPORT ---
Subjective Progress Note for:: 11/13/18 Subjective:: This is an 83 year old female with a past medical history of asthma, previous smoker, CHF (last known EF 42%), morbid obesity, paroxysmal atrial fibrillation, intolerant of Pradaxa and Xarelto secondary to GI and epistaxis bleed, on aspirin and Plavix who presented with rhinorrhea, postnasal drip and worsening shortness of breath. She was admitted for COPD exacerbation. 11/11: She says she still has SOB today. Appears not to be on steroids. Will add solumedrol today. Denies chest pain. 11/12: She says her shortness of breath has improved today. She is now coughing out light yellowish sputum. Denies chest pain. She has bilateral wheezes today slightly improved from yesterday. 11/13: No acute event overnight. She says her shortness of breath continues to improve. She has bilateral wheezes this morning but improved compared to yesterday's. Reason For Visit: COPD, HEART FAILURE Physical Exam Vital Signs: Temp Pulse Resp BP Pulse Ox 97.9 F 76 14 152/48 H 91 L 11/13/18 08:33 11/13/18 14:00 11/13/18 13:04 11/13/18 08:33 11/13/18 13:04 Intake & Output 11/12/18 11/13/18 11/14/18 06:59 06:59 06:59 Intake Total 890 1254 Balance 890 1254 Weight 184 lb 8.43 oz 192 lb 10.944 oz General appearance: PRESENT: no acute distress, well-developed, well-nourished Head exam: PRESENT: atraumatic, normocephalic Eye exam: PRESENT: conjunctiva pink, EOMI, PERRLA. ABSENT: scleral icterus Ear exam: PRESENT: normal external ear exam Mouth exam: PRESENT: moist, tongue midline Neck exam: ABSENT: carotid bruit, JVD, lymphadenopathy, thyromegaly Respiratory exam: PRESENT: wheezes. ABSENT: rales, rhonchi Cardiovascular exam: PRESENT: RRR. ABSENT: diastolic murmur, rubs, systolic murmur Pulses: PRESENT: normal dorsalis pedis pul GI/Abdominal exam: PRESENT: normal bowel sounds, soft. ABSENT: distended, guarding, mass, organolmegaly, rebound, tenderness Rectal exam: PRESENT: deferred Neurological exam: PRESENT: alert, awake, oriented to person, oriented to place, oriented to time, oriented to situation, CN II-XII grossly intact. ABSENT: motor sensory deficit Results Laboratory Results: 11/12/18 06:30 11/13/18 05:05 11/12/18 11/13/18 18:13 05:05 Sodium 135.4 L Potassium 5.2 H 5.3 H Chloride 101 Carbon Dioxide 32 H Anion Gap 3 L BUN 56 H Creatinine 0.92 Est GFR ( Amer) > 60 Est GFR (Non-Af Amer) 58 L Glucose 151 H Calcium 10.6 H 11/09/18 11/09/18 11/09/18 23:28 23:28 23:28 Creatine Kinase 81 CK-MB (CK-2) 2.35 Troponin I 0.017 Cancelled NT-Pro-B Natriuret Pep 6810 H 11/10/18 11/10/18 11/10/18 05:39 05:39 11:28 Creatine Kinase 62 52 CK-MB (CK-2) 1.96 Troponin I 0.021 NT-Pro-B Natriuret Pep 11/10/18 11:28 Creatine Kinase CK-MB (CK-2) 2.01 Troponin I 0.016 NT-Pro-B Natriuret Pep Impressions: Chest X-Ray 11/13/18 06:00 IMPRESSION: HEART ENLARGED WITHOUT FAILURE. NO OTHER SIGNIFICANT RADIOGRAPHIC FINDING IN THE CHEST. Assessment & Plan - Diagnosis (1) Asthma exacerbation Qualifiers: Asthma severity: mild Asthma persistence: persistent Qualified Code(s): J45.31 - Mild persistent asthma with (acute) exacerbation Is this a current diagnosis for this admission?: Yes Plan: 11/11: She is not on steroids. Will add solumedrol today. Continue breathing treatments. 11/13: Improving. Continue breathing treatments. Switch solumedrol to prednisone. (2) Paroxysmal atrial fibrillation Is this a current diagnosis for this admission?: Yes Plan: Currently in sinus rhythm. Taken off anticoagulation due to recurrent epistaxis and GI bleed. (3) Hyperkalemia Is this a current diagnosis for this admission?: Yes Plan: Potassium is 5.6 this morning. No peaked T wave son telemetry. Will repeat Potassium this afternoon. 11/11: Appears she was started on PO Potassium, unsure why. Will DC Potassium PO. 11/12: Potassium at 5.7. Potassium was dc/d yesterday. Lisinopril held. Will give a dextrose-insulin regimen and a dose of Kayexalate. Repeat Potassium later t suyapa. 11/13: Improved. Repeat Potassium at 5.3. - Time Time Spent with patient: 15-24 minutes
[2018-11-13] MEDS: PREDNISONE 20 MG TABLET PO SCH (17:14)
[2018-11-13] MEDS: ATORVASTATIN CALCIUM 10 MG TABLET PO SCH (21:20)
[2018-11-13] MEDS: DOCUSATE SODIUM 100 MG CAPSULE PO SCH (21:20)
[2018-11-14] MEDS: IPRATROPIUM BROMIDE 0.02% NEB 0.5 MG/2.5 ML AMPUL NEB SCH ×4 (02:11→20:11)
[2018-11-14] MEDS: LEVALBUTEROL HCL NEB 1.25 MG/3 ML AMPUL NEB SCH ×4 (02:11→20:11)
[2018-11-14] MEDS: METOPROLOL SUCCINATE 50 MG TAB.SR.24H PO SCH ×2 (09:31→21:35)
[2018-11-14] MEDS: FUROSEMIDE INJ/PF 20 MG/2 ML SDV IV SCH (09:31)
[2018-11-14] MEDS: PREDNISONE 20 MG TABLET PO SCH ×2 (09:31→17:28)
[2018-11-14] MEDS: ASPIRIN 81 MG TABLET, ENT COATED PO SCH (09:31)
[2018-11-14] MEDS: CLOPIDOGREL BISULFATE 75 MG TABLET PO SCH (09:31)
[2018-11-14] MEDS: IRON POLYSACCHARIDES COMPLEX 150 MG CAPSULE PO SCH (09:32)
[2018-11-14] MEDS: FONDAPARINUX SODIUM INJ 2.5 MG/0.5 ML DISP.SYRIN SUBCUT SCH (09:32)
[2018-11-14] MEDS: FLUTICASONE NASAL SPRAY 50 MCG/SPRY 120 SPRAY/16 GM NASL SCH ×2 (09:32→21:35)
[2018-11-14] MEDS: FLUTICASONE/VILANTEROL 100-25 MCG/DOSE IH SCH (09:33)
[2018-11-14] MEDS: NITROGLYCERIN 2.5 MG (0.1 MG/HR) PATCH.TD24 TD SCH (09:39)
[2018-11-14 10:21] LABS: ABSOLUTE LYMPHOCYTES (AUTO) 2.1 10^3/uL (0.5-4.7); ABSOLUTE MONOCYTES (AUTO) 1.3 10^3/uL (0.1-1.4); ABSOLUTE NEUT (AUTO) 6.5 10^3/uL (1.7-8.2); BASOPHILS % (AUTO) 0.3 % (0-2); HEMATOCRIT 31.9 % (36.0-47.0); HEMOGLOBIN 10.3 g/dL (12.0-15.5); LYMPHOCYTES % (AUTO) 21.3 % (13-45); MEAN CORPUSCULAR HEMOGLOBIN 29.5 pg (27.0-33.4); MEAN CORPUSCULAR HGB CONC 32.4 g/dL (32.0-36.0); MEAN CORPUSCULAR VOLUME 91 fl (80-97); MONOCYTES % (AUTO) 12.9 % (3-13); PLATELET COUNT 301 10^3/uL (150-450); RED CELL DISTRIBUTION WIDTH 14.9 % (11.5-14.0); SEGMENTED NEUTROPHILS % (AUTO) 65.5 % (42-78); TOTAL CELLS COUNTED % (AUTO) 100 %; WHITE BLOOD COUNT 9.9 10^3/uL (4.0-10.5)
[2018-11-14 10:44] LABS: ANION GAP 6 (5-19); BLOOD UREA NITROGEN 59 mg/dL (7-20); CALCIUM 10.4 mg/dL (8.4-10.2); CARBON DIOXIDE 33 mmol/L (22-30); CHLORIDE 99 mmol/L (98-107); GLUCOSE 132 mg/dL (75-110); POTASSIUM 4.9 mmol/L (3.6-5.0); SODIUM 138.4 mmol/L (137-145)
--- NOTE | 2018-11-14 14:48 | PDOC PROGRESS REPORT ---
Subjective Progress Note for:: 11/14/18 Subjective:: This is an 83 year old female with a past medical history of asthma, previous smoker, CHF (last known EF 42%), morbid obesity, paroxysmal atrial fibrillation, intolerant of Pradaxa and Xarelto secondary to GI and epistaxis bleed, on aspirin and Plavix who presented with rhinorrhea, postnasal drip and worsening shortness of breath. She was admitted for COPD exacerbation. 11/11: She says she still has SOB today. Appears not to be on steroids. Will add solumedrol today. Denies chest pain. 11/12: She says her shortness of breath has improved today. She is now coughing out light yellowish sputum. Denies chest pain. She has bilateral wheezes today slightly improved from yesterday. 11/13: She says her shortness of breath continues to improve. She has bilateral wheezes this morning but improved compared to yesterday's. 11/14: No acute event overnight. She continues to improve. Wheezing has significantly improved today. Currently on 2 lpm via NC. Will try to wean off O2 and assess if she needs home O2. Reason For Visit: COPD, HEART FAILURE Physical Exam Vital Signs: Temp Pulse Resp BP Pulse Ox 97.6 F 69 16 149/43 H 96 11/14/18 07:00 11/14/18 08:13 11/14/18 08:13 11/14/18 07:00 11/14/18 08:13 Intake & Output 11/13/18 11/14/18 11/15/18 06:59 06:59 06:59 Intake Total 1254 1650 Balance 1254 1650 Weight 192 lb 10.944 oz 195 lb 12.328 oz General appearance: PRESENT: no acute distress, well-developed, well-nourished Head exam: PRESENT: atraumatic, normocephalic Eye exam: PRESENT: conjunctiva pink, EOMI, PERRLA. ABSENT: scleral icterus Ear exam: PRESENT: normal external ear exam Mouth exam: PRESENT: moist, tongue midline Neck exam: ABSENT: carotid bruit, JVD, lymphadenopathy, thyromegaly Respiratory exam: PRESENT: wheezes - minimal. ABSENT: rales, rhonchi Cardiovascular exam: PRESENT: RRR. ABSENT: diastolic murmur, rubs, systolic murmur Pulses: PRESENT: normal dorsalis pedis pul GI/Abdominal exam: PRESENT: normal bowel sounds, soft. ABSENT: distended, guarding, mass, organolmegaly, rebound, tenderness Rectal exam: PRESENT: deferred Neurological exam: PRESENT: alert, awake, oriented to person, oriented to place, oriented to time, oriented to situation, CN II-XII grossly intact. ABSENT: motor sensory deficit Results Laboratory Results: 11/14/18 10:00 11/14/18 10:00 11/14/18 11/14/18 10:00 10:00 WBC 9.9 RBC 3.50 L Hgb 10.3 L Hct 31.9 L MCV 91 MCH 29.5 MCHC 32.4 RDW 14.9 H Plt Count 301 Seg Neutrophils % 65.5 Lymphocytes % 21.3 Monocytes % 12.9 Eosinophils % 0.0 Basophils % 0.3 Absolute Neutrophils 6.5 Absolute Lymphocytes 2.1 Absolute Monocytes 1.3 Absolute Eosinophils 0.0 Absolute Basophils 0.0 Sodium 138.4 Potassium 4.9 Chloride 99 Carbon Dioxide 33 H Anion Gap 6 BUN 59 H Creatinine 0.78 Est GFR ( Amer) > 60 Est GFR (Non-Af Amer) > 60 Glucose 132 H Calcium 10.4 H 11/09/18 11/09/18 11/09/18 23:28 23:28 23:28 Creatine Kinase 81 CK-MB (CK-2) 2.35 Troponin I 0.017 Cancelled NT-Pro-B Natriuret Pep 6810 H 11/10/18 11/10/18 11/10/18 05:39 05:39 11:28 Creatine Kinase 62 52 CK-MB (CK-2) 1.96 Troponin I 0.021 NT-Pro-B Natriuret Pep 11/10/18 11:28 Creatine Kinase CK-MB (CK-2) 2.01 Troponin I 0.016 NT-Pro-B Natriuret Pep Impressions: Chest X-Ray 11/13/18 06:00 IMPRESSION: HEART ENLARGED WITHOUT FAILURE. NO OTHER SIGNIFICANT RADIOGRAPHIC FINDING IN THE CHEST. Assessment & Plan - Diagnosis (1) Asthma exacerbation Qualifiers: Asthma severity: mild Asthma persistence: persistent Qualified Code(s): J45.31 - Mild persistent asthma with (acute) exacerbation Is this a current diagnosis for this admission?: Yes Plan: 11/11: She is not on steroids. Will add solumedrol today. Continue breathing treatments. 11/13: Continue breathing treatments. Switch solumedrol to prednisone. 11/14: Resolving. Wheezing has significantly improved today. Currently on 2 lpm via NC. Will try to wean off O2 and assess if she needs home O2. Continue prednisone and breathing treatments. (2) Paroxysmal atrial fibrillation Is this a current diagnosis for this admission?: Yes Plan: Currently in sinus rhythm. Taken off anticoagulation due to recurrent epistaxis and GI bleed. (3) Hyperkalemia Is this a current diagnosis for this admission?: Yes Plan: Potassium is 5.6 this morning. No peaked T wave son telemetry. Will repeat Potassium this afternoon. 11/11: Appears she was started on PO Potassium, unsure why. Will DC Potassium PO. 11/12: Potassium at 5.7. Potassium was dc/d yesterday. Lisinopril held. Will give a dextrose-insulin regimen and a dose of Kayexalate. Repeat Potassium later today. 11/13: Improved. Repeat Potassium at 5.3. 11/14: Resolved. - Time Time Spent with patient: 15-24 minutes
[2018-11-14] MEDS: DOCUSATE SODIUM 100 MG CAPSULE PO SCH (21:35)
[2018-11-14] MEDS: ATORVASTATIN CALCIUM 10 MG TABLET PO SCH (21:35)
[2018-11-15] MEDS: IPRATROPIUM BROMIDE 0.02% NEB 0.5 MG/2.5 ML AMPUL NEB SCH ×4 (01:55→20:05)
[2018-11-15] MEDS: LEVALBUTEROL HCL NEB 1.25 MG/3 ML AMPUL NEB SCH ×4 (01:55→20:05)
[2018-11-15] MEDS: FLUTICASONE/VILANTEROL 100-25 MCG/DOSE IH SCH (09:46)
[2018-11-15] MEDS: FUROSEMIDE INJ/PF 20 MG/2 ML SDV IV SCH (09:46)
[2018-11-15] MEDS: IRON POLYSACCHARIDES COMPLEX 150 MG CAPSULE PO SCH (09:46)
[2018-11-15] MEDS: CLOPIDOGREL BISULFATE 75 MG TABLET PO SCH (09:46)
[2018-11-15] MEDS: PREDNISONE 20 MG TABLET PO SCH ×2 (09:46→17:17)
[2018-11-15] MEDS: ASPIRIN 81 MG TABLET, ENT COATED PO SCH (09:46)
[2018-11-15] MEDS: FLUTICASONE NASAL SPRAY 50 MCG/SPRY 120 SPRAY/16 GM NASL SCH ×2 (09:46→22:00)
[2018-11-15] MEDS: METOPROLOL SUCCINATE 50 MG TAB.SR.24H PO SCH ×2 (09:46→22:01)
[2018-11-15] MEDS: FONDAPARINUX SODIUM INJ 2.5 MG/0.5 ML DISP.SYRIN SUBCUT SCH (09:47)
[2018-11-15] MEDS: NITROGLYCERIN 2.5 MG (0.1 MG/HR) PATCH.TD24 TD SCH (09:58)
[2018-11-15] MEDS: AMLODIPINE BESYLATE 5 MG TABLET PO SCH (11:19)
[2018-11-15] MEDS: LISINOPRIL 10 MG TABLET PO SCH (11:19)
--- NOTE | 2018-11-15 12:24 | PDOC PROGRESS REPORT ---
Subjective Progress Note for:: 11/15/18 Subjective:: This is an 83 year old female with a past medical history of asthma, previous smoker, CHF (last known EF 42%), morbid obesity, paroxysmal atrial fibrillation, intolerant of Pradaxa and Xarelto secondary to GI and epistaxis bleed, on aspirin and Plavix who presented with rhinorrhea, postnasal drip and worsening shortness of breath. She was admitted for asthma exacerbation. 11/11: She says she still has SOB today. Appears not to be on steroids. Will add solumedrol today. Denies chest pain. 11/12: She says her shortness of breath has improved today. She is now coughing out light yellowish sputum. Denies chest pain. She has bilateral wheezes today slightly improved from yesterday. 11/13: She says her shortness of breath continues to improve. She has bilateral wheezes this morning but improved compared to yesterday's. 11/14: She continues to improve. Wheezing has significantly improved today. Currently on 2 lpm via NC. Will try to wean off O2 and assess if she needs home O2. 11/15: No acute event overnight. She reportedly has desaturation overnight to 88% on room air. Currently comfortable and saturating well on 2 lpm via NC. She says she continues to fell better and is close to her baseline. Patient does have limited mobility at home as she gets SOB from walking from the bedroom to the kitchen on her baseline. Daughter is concerned about patient only living with his who apparently has dementia and has been having frequent falls at home too. Her daughter lives 1.5 hrs away from her. Patient is not amenable to SNF/rehab placement at this time and insist on being discharged back home. Will arrange for home health including [facility] instead when she is ready for discharge. Anticipating discharge in the next 24-48 hrs. Reason For Visit: COPD, HEART FAILURE Physical Exam Vital Signs: Temp Pulse Resp BP Pulse Ox 98.2 F 62 20 189/45 H 98 11/15/18 08:27 11/15/18 08:27 11/15/18 08:27 11/15/18 08:27 11/15/18 08:27 Intake & Output 11/14/18 11/15/18 11/16/18 06:59 06:59 06:59 Intake Total 1650 1050 Balance 1650 1050 Weight 195 lb 12.328 oz 183 lb 10.321 oz General appearance: PRESENT: no acute distress, well-developed, well-nourished Head exam: PRESENT: atraumatic, normocephalic Eye exam: PRESENT: conjunctiva pink, EOMI, PERRLA. ABSENT: scleral icterus Ear exam: PRESENT: normal external ear exam Mouth exam: PRESENT: moist, tongue midline Neck exam: ABSENT: carotid bruit, JVD, lymphadenopathy, thyromegaly Respiratory exam: PRESENT: clear to auscultation luis, wheezes - minimal. ABSENT: rales, rhonchi Cardiovascular exam: PRESENT: RRR. ABSENT: diastolic murmur, rubs, systolic murmur Pulses: PRESENT: normal dorsalis pedis pul GI/Abdominal exam: PRESENT: normal bowel sounds, soft. ABSENT: distended, guarding, mass, organolmegaly, rebound, tenderness Rectal exam: PRESENT: deferred Extremities exam: PRESENT: +1 edema Neurological exam: PRESENT: alert, awake, oriented to person, oriented to place, oriented to time, oriented to situation, CN II-XII grossly intact. ABSENT: motor sensory deficit Results Laboratory Results: 11/14/18 10:00 11/14/18 10:00 11/09/18 11/09/18 11/09/18 23:28 23:28 23:28 Creatine Kinase 81 CK-MB (CK-2) 2.35 Troponin I 0.017 Cancelled NT-Pro-B Natriuret Pep 6810 H 11/10/18 11/10/18 11/10/18 05:39 05:39 11:28 Creatine Kinase 62 52 CK-MB (CK-2) 1.96 Troponin I 0.021 NT-Pro-B Natriuret Pep 11/10/18 11:28 Creatine Kinase CK-MB (CK-2) 2.01 Troponin I 0.016 NT-Pro-B Natriuret Pep Impressions: Chest X-Ray 11/13/18 06:00 IMPRESSION: HEART ENLARGED WITHOUT FAILURE. NO OTHER SIGNIFICANT RADIOGRAPHIC FINDING IN THE CHEST. Assessment & Plan - Diagnosis (1) Asthma exacerbation Qualifiers: Asthma severity: mild Asthma persistence: persistent Qualified Code(s): J45.31 - Mild persistent asthma with (acute) exacerbation Is this a current diagnosis for this admission?: Yes Plan: 3/12: She is not on steroids. Will add solumedrol today. Continue breathing treatments. 11/13: Continue breathing treatments. Switch solumedrol to prednisone. 11/14: Wheezing has significantly improved today. Currently on 2 lpm via NC. Will try to wean off O2 and assess if she needs home O2. 11/15: Resolving. Close to baseline. Will do 6 minute walk test and see if she qualifies for home O2. Continue prednisone and breathing treatments. Anticipating discharge in the next 24-48 hrs. (2) Paroxysmal atrial fibrillation Is this a current diagnosis for this admission?: Yes Plan: Currently in sinus rhythm. Taken off anticoagulation due to recurrent epistaxis and GI bleed. (3) Hyperkalemia Is this a current diagnosis for this admission?: Yes Plan: Potassium is 5.6 this morning. No peaked T wave son telemetry. Will repeat Potassium this afternoon. 11/11: Appears she was started on PO Potassium, unsure why. Will DC Potassium PO. 11/12: Potassium at 5.7. Potassium was dc/d yesterday. Lisinopril held. Will give a dextrose-insulin regimen and a dose of Kayexalate. Repeat Potassium later today. 11/13: Improved. Repeat Potassium at 5.3. 11/14: Resolved. - Time Time Spent with patient: 25-34 minutes
[2018-11-15] MEDS: ATORVASTATIN CALCIUM 10 MG TABLET PO SCH (22:01)
[2018-11-15] MEDS: DOCUSATE SODIUM 100 MG CAPSULE PO SCH (22:03)
[2018-11-16] MEDS: IPRATROPIUM BROMIDE 0.02% NEB 0.5 MG/2.5 ML AMPUL NEB SCH ×2 (01:29→08:22)
[2018-11-16] MEDS: LEVALBUTEROL HCL NEB 1.25 MG/3 ML AMPUL NEB SCH ×2 (01:29→08:22)
[2018-11-16] MEDS: ASPIRIN 81 MG TABLET, ENT COATED PO SCH (09:53)
[2018-11-16] MEDS: METOPROLOL SUCCINATE 50 MG TAB.SR.24H PO SCH (09:53)
[2018-11-16] MEDS: AMLODIPINE BESYLATE 5 MG TABLET PO SCH (09:53)
[2018-11-16] MEDS: IRON POLYSACCHARIDES COMPLEX 150 MG CAPSULE PO SCH (09:53)
[2018-11-16] MEDS: PREDNISONE 20 MG TABLET PO SCH (09:54)
[2018-11-16] MEDS: FLUTICASONE/VILANTEROL 100-25 MCG/DOSE IH SCH (09:54)
[2018-11-16] MEDS: FONDAPARINUX SODIUM INJ 2.5 MG/0.5 ML DISP.SYRIN SUBCUT SCH (09:54)
[2018-11-16] MEDS: CLOPIDOGREL BISULFATE 75 MG TABLET PO SCH (09:54)
[2018-11-16] MEDS: LISINOPRIL 10 MG TABLET PO SCH (09:54)
[2018-11-16] MEDS: FUROSEMIDE INJ/PF 20 MG/2 ML SDV IV SCH (09:55)
[2018-11-16] MEDS: FLUTICASONE NASAL SPRAY 50 MCG/SPRY 120 SPRAY/16 GM NASL SCH (09:55)
[2018-11-16] MEDS: NITROGLYCERIN 2.5 MG (0.1 MG/HR) PATCH.TD24 TD SCH (10:02)
[2018-11-16] MEDS ORDERED: FUROSEMIDE 20 MG TABLET PO ONE (11:00)
[2018-11-16 11:28] VITALS: BP 145/49
--- NOTE | 2018-11-16 16:53 | PDOC DISCHARGE SUMMARY ---
General - Admit/Disc Date/PCP Admission Date/Primary Care Provider: 11/10/18 01:03 ISAURA KESSLER MD Discharge Date: 11/16/18 - Discharge Diagnosis (1) Asthma exacerbation Is this a current diagnosis for this admission?: Yes (2) Paroxysmal atrial fibrillation Is this a current diagnosis for this admission?: Yes (3) Hyperkalemia Is this a current diagnosis for this admission?: Yes - Additional Information Resuscitation Status: Full Code Discharge Diet: Cardiac Discharge Activity: Activity As Tolerated, Balance Activity w/Rest, Bedrest, Weigh Daily Prescriptions: Fluticasone/Salmeterol [Advair 100-50 Diskus 14 Dose/Diskus] 1 inh IH Q12H #1 inhaler Lisinopril 20 mg PO DAILY #30 tablet Metoprolol Succinate [Toprol Xl 50 mg Tab.sr] 50 mg PO Q12 #60 tab.sr.24h Prednisone [Deltasone 20 mg Tablet] 20 mg PO BID 5 Days #10 tablet Home Medications: Aspirin [Adult Low Dose Aspirin EC] 81 mg PO DAILY 12/14/15 Calcium Carbonate/Vitamin D3 [Calcium 500-Vit D3 200 Caplet] 1 tab PO BID 12/14/15 Clopidogrel Bisulfate [Clopidogrel] 75 mg PO DAILY 12/14/15 Docusate Sodium 100 mg PO QHS 12/14/15 Atorvastatin Calcium [Lipitor 10 mg Tablet] 10 mg PO QHS #30 tablet 01/02/16 Amlodipine Besylate [Norvasc 5 mg Tablet] 5 mg PO DAILY 11/10/18 Metoprolol Tartrate [Lopressor 100 mg Tablet] 100 mg PO Q12 11/10/18 No122/Iron/Folic Acid [ Multi Tablet] 1 tab PO DAILY 11/10/18 Fluticasone/Salmeterol [Advair 100-50 Diskus 14 Dose/Diskus] 1 inh IH Q12H #1 inhaler 11/16/18 Levalbuterol HCl [Xopenex Neb 1.25 mg/3 ml Ampul] 1.25 mg NEB RTQ6 vial.neb 11/16/18 Lisinopril 20 mg PO DAILY #30 tablet 11/16/18 Metoprolol Succinate [Toprol Xl 50 mg Tab.sr] 50 mg PO Q12 #60 tab.sr.24h 11/16/18 Prednisone [Deltasone 20 mg Tablet] 20 mg PO BID 5 Days #10 tablet 11/16/18 History of Present Illness History of Present Illness: Admitting hospitalist's H&P: OSCAR KURTZ is a 83 year old female with a past medical history of asthma, morbid obesity, paroxysmal atrial fibrillation, intolerant of Pradaxa and Xarelto secondary to GI and epistasis bleed, on aspirin and Plavix. She presents to the emergency department following 48 hours of rhinorrhea, postnasal drip and shortness of breath. Hospital Course Hospital Course: This is an 83 year old female with a past medical history of asthma, previous smoker, CHF (last known EF 42%), morbid obesity, paroxysmal atrial fibrillation, intolerant of Pradaxa and Xarelto secondary to GI and epistaxis bleed, on aspirin and Plavix who presented with rhinorrhea, postnasal drip and worsening shortness of breath. She was admitted for asthma exacerbation. She did have significant wheezing and was initially hypoxic. She was started on steroids and scheduled breathing treatments. Her wheezing did gradually improve. Although, her BNP was elevated, she did not have crackles and chest x-ray did not show congestion. She had asthma exacerbation rather than a CHF exacerbation. She reportedly had a desaturation overnight to 88% on room air . Patient does have limited mobility at home as she gets SOB from walking from the bedroom to the kitchen on her baseline. She returned to her baseline and did qualify for home O2 during ambulation. Daughter is concerned about patient only living with his who apparently has dementia and has been having frequent falls at home too. Her daughter lives 1.5 hrs away from her. Patient is not a menable to SNF/rehab placement at this time and insist on being discharged back home. Will arrange for home health including home staging specialist services instead when she is ready for discharge. She will be discharged on 5 more days of steroids and will also be prescribed Advair. Physical Exam Vital Signs: Temp Pulse Resp BP Pulse Ox 98.3 F 78 16 145/49 H 99 11/16/18 11:24 11/16/18 11:24 11/16/18 11:24 11/16/18 11:24 11/16/18 11:24 Intake & Output 11/15/18 11/16/18 11/17/18 06:59 06:59 06:59 Intake Total 1050 532 Output Total 100 Balance 1050 432 Weight 183 lb 10.321 oz 183 lb 3.266 oz General appearance: PRESENT: no acute distress, well-developed, well-nourished Head exam: PRESENT: atraumatic, normocephalic Eye exam: PRESENT: conjunctiva pink, EOMI, PERRLA. ABSENT: scleral icterus Ear exam: PRESENT: normal external ear exam Mouth exam: PRESENT: moist, tongue midline Neck exam: ABSENT: carotid bruit, JVD, lymphadenopathy, thyromegaly Respiratory exam: PRESENT: clear to auscultation luis. ABSENT: rales, rhonchi, wheezes Cardiovascular exam: PRESENT: RRR. ABSENT: diastolic murmur, rubs, systolic murmur Pulses: PRESENT: normal dorsalis pedis pul Vascular exam: PRESENT: normal capillary refill GI/Abdominal exam: PRESENT: normal bowel sounds, soft. ABSENT: distended, guarding, mass, organolmegaly, rebound, tenderness Rectal exam: PRESENT: deferred Neurological exam: PRESENT: alert, awake, oriented to person, oriented to place, oriented to time, oriented to situation, CN II-XII grossly intact. ABSENT: motor sensory deficit Results Laboratory Results: 11/14/18 10:00 11/14/18 10:00 11/09/18 11/09/18 11/09/18 23:28 23:28 23:28 Creatine Kinase 81 CK-MB (CK-2) 2.35 Troponin I 0.017 Cancelled NT-Pro-B Natriuret Pep 6810 H 11/10/18 11/10/18 11/10/18 05:39 05:39 11:28 Creatine Kinase 62 52 CK-MB (CK-2) 1.96 Troponin I 0.021 NT-Pro-B Natriuret Pep 11/10/18 11:28 Creatine Kinase CK-MB (CK-2) 2.01 Troponin I 0.016 NT-Pro-B Natriuret Pep Impressions: Chest X-Ray 11/13/18 06:00 IMPRESSION: HEART ENLARGED WITHOUT FAILURE. NO OTHER SIGNIFICANT RADIOGRAPHIC FINDING IN THE CHEST. Qualifiers - * PATIENT BEING DISCHARGED WITH ANY OF THE FOLLOWING DIAGNOSIS: No
== END 2018-11-16 12:54 | disposition home health service (06) | DRG 203 ==
LOC: ER 23:22 → EH 11-10 01:03 → 4N 11-10 19:07
PROVIDERS: ADMIT Internal Medicine; ATTEND Internal Medicine
DX: J45.31 Mild persistent asthma with (acute) exacerbation (principal); I48.0 Paroxysmal atrial fibrillation; E87.5 Hyperkalemia; I50.9 Heart failure, unspecified; I11.0 Hypertensive heart disease with heart failure; D64.9 Anemia, unspecified; J32.9 Chronic sinusitis, unspecified; E66.01 Morbid (severe) obesity due to excess calories; Z79.82 Long term (current) use of aspirin; Z79.899 Other long term (current) drug therapy; Z90.12 Acquired absence of left breast and nipple
CPT/HCPCS: 36415; 71045; 80048; 80053; 82550; 82553; 82607; 82728; 82746; 82803; 82962; 83540; 83550; 83605; 83880; 84132; 84443; 84484; 85025; 85027; 85045; 87804; 93005; 93010; 94640; 94660; 96374; 99291; J0610; J1644; J1652; J1815; J1940; J2060; J2920; J3490; J7512

== ENCOUNTER 2018-11-16 23:46 | Emergency (ER) | payer MEDICARE, OTHER ==
[2018-11-17] MEDS ORDERED: IPRATROPIUM/ALBUTEROL 0.5-2.5 MG/3 ML AMPUL NEB ONE (00:10)
[2018-11-17 00:21] LABS: ABSOLUTE LYMPHOCYTES (AUTO) 1.5 10^3/uL (0.5-4.7); ABSOLUTE MONOCYTES (AUTO) 0.8 10^3/uL (0.1-1.4); ABSOLUTE NEUT (AUTO) 11.3 10^3/uL (1.7-8.2); BASOPHILS % (AUTO) 0.2 % (0-2); HEMATOCRIT 35.1 % (36.0-47.0); HEMOGLOBIN 11.3 g/dL (12.0-15.5); LYMPHOCYTES % (AUTO) 10.9 % (13-45); MEAN CORPUSCULAR HEMOGLOBIN 28.9 pg (27.0-33.4); MEAN CORPUSCULAR HGB CONC 32.3 g/dL (32.0-36.0); MEAN CORPUSCULAR VOLUME 90 fl (80-97); MONOCYTES % (AUTO) 6.1 % (3-13); PLATELET COUNT 388 10^3/uL (150-450); RED BLOOD COUNT 3.92 10^6/uL (3.72-5.28); RED CELL DISTRIBUTION WIDTH 15.3 % (11.5-14.0); SEGMENTED NEUTROPHILS % (AUTO) 82.8 % (42-78); TOTAL CELLS COUNTED % (AUTO) 100 %; WHITE BLOOD COUNT 13.6 10^3/uL (4.0-10.5)
--- NOTE | 2018-11-17 00:23 | ER Document Report ---
ED Respiratory Problem - General Stated Complaint: TROUBLE BREATHING Time Seen by Provider: 11/17/18 00:00 Primary Care Provider: ISAURA KESSLER MD [Primary Care Provider] - Follow up as needed Notes: Patient is an 83-year-old female that comes to the emergency department for chief complaint of wheezing, shortness of breath. Patient was discharged home today, she states that she was provided with oxygen at home but the battery packs not working, she states she is having to transfer the plug, she states that she was trying to go too far, cannot use the oxygen on a trip down the hallway, she states she became anxious and when she was wheezing she became more concerned. She denies chest pain, dizziness, fever, vomiting. She still has a cough. Past medical history includes asthma, former smoker many years ago, A. fib, CHF, on aspirin, Plavix, prednisone 40 mg twice a day, took her first dose earlier today. She lives at home with her who has dementia. She states she is supposed to get home health set up but cannot call until tomorrow. TRAVEL OUTSIDE OF THE [place] IN LAST 30 DAYS: No - Related Data Allergies/Adverse Reactions: diphenhydramine HCl [From Benadryl] Allergy (Verified 11/17/18 01:38) erythromycin base [Erythromycin Base] Allergy (Verified 11/17/18 01:38) ibuprofen [From Motrin] Allergy (Verified 11/17/18 01:38) oseltamivir phosphate [From Tamiflu] Allergy (Verified 11/17/18 01:38) Past Medical History - General Information source: Patient - Social History Smoking Status: Never Smoker Frequency of alcohol use: None Drug Abuse: None Lives with: Family Family History: Hypertension - Past Medical History Cardiac Medical History: Reports: Hx Atrial Fibrillation, Hx Hypertension Pulmonary Medical History: Reports: Hx Asthma Renal/ Medical History: Denies: Hx Peritoneal Dialysis Past Surgical History: Reports: Hx Breast Surgery - Left mastectomy - Immunizations Immunizations up to date: Yes Hx Diphtheria, Pertussis, Tetanus Vaccination: Yes Review of Systems - Review of Systems Constitutional: No symptoms reported EENT: No symptoms reported Cardiovascular: No symptoms reported Respiratory: See HPI Gastrointestinal: No symptoms reported Genitourinary: No symptoms reported Female Genitourinary: No symptoms reported Musculoskeletal: No symptoms reported Skin: No symptoms reported Hematologic/Lymphatic: No symptoms reported Neurological/Psychological: No symptoms reported Physical Exam - Vital signs Vitals: Resp BP 16 157/57 H 11/16/18 23:53 11/16/18 23:53 - Notes Notes: GENERAL: Alert, interacts well. No acute distress. HEAD: Normocephalic, atraumatic. EYES: Pupils equal, round, and reactive to light. Extraocular movements intact. ENT: Oral mucosa moist, tongue midline. Oropharynx unremarkable. Airway patent. Nares patent, no nasal septal hematoma, TM's intact. NECK: Full range of motion. Supple. Trachea midline. LUNGS: Mainly clear with faint expiratory wheezes. No rales or rhonchi. No tachypnea or signs of distress. HEART: Regular rate and rhythm. No murmur ABDOMEN: Soft, non-tender. Non-distended. Bowel sounds present in all 4 quadrants. GENITOURINARY: Deferred EXTREMITIES: Moves all 4 extremities spontaneously. No edema, normal radial and dorsalis pedis pulses bilaterally. No cyanosis. BACK: no cervical, thoracic, lumbar midline tenderness. No saddle anesthesia, normal distal neurovascular exam. NEUROLOGICAL: Alert and oriented x3. Normal speech. [cranial nerves II through XII grossly intact]. PSYCH: Talks very rapidly, slightly anxious SKIN: Warm, dry, normal turgor. No rashes or lesions noted. Course - Re-evaluation Re-evalutation: On my initial evaluation patient has some minimal expiratory wheezes, no tachypnea, she is very talkative and well-appearing. She is not hypoxic, no dis tress. Chest x-ray unremarkable. CBC shows mild leukocytosis but patient is on steroids. No fever. Chemistry nonspecific, troponin is at her baseline, venous blood gas does not show acidosis. On reevaluation after DuoNeb patient's wheezing resolved, she remains extremely well-appearing. I discussed with patient and significant other bedside. Patient expresses some degree of anxiety about her symptoms but states she feels better now and she is ready to go home. She has her Atrovent now which she was just prescribed but has not started using it. She states she has follow-up today, she states she does not need anything else. Discussed workup, follow-up, and return precautions. They state understanding and agreement. - Vital Signs Vital signs: Temp Pulse Resp BP Pulse Ox 15 163/62 H 97 11/17/18 03:08 11/17/18 03:08 11/17/18 03:08 - Laboratory Result Diagrams: 11/17/18 00:05 11/17/18 00:05 Laboratory results interpreted by me: 11/17/18 11/17/18 11/17/18 00:05 00:05 00:05 WBC 13.6 H Hgb 11.3 L Hct 35.1 L RDW 15.3 H Seg Neutrophils % 82.8 H Lymphocytes % 10.9 L Absolute Neutrophils 11.3 H VBG pH 7.43 H VBG HCO3 34.1 H Carbon Dioxide 34 H BUN 51 H Glucose 157 H Discharge - Discharge Clinical Impression: Cough, Wheezing Condition: Stable Disposition: HOME, SELF-CARE Additional Instructions: Your evaluation and workup today does not show any concerning finding. Continue Atrovent and Xopenex as needed for wheezing/cough, continue oxygen use, continue current medications including prednisone. Follow-up with home health arrangements, oxygen tank arrangements, and primary care closely. Return if you worsen including fever, difficulty breathing, chest pain, vomiting, passing out, or any other concerning or worsening symptoms. Referrals: ISAURA KESSLER MD [Primary Care Provider] - Follow up as needed
[2018-11-17 00:26] LABS: VENOUS BLOOD BASE EXCESS 8.1 mmol/L; VENOUS BLOOD HCO3 34.1 mmol/L (20-32); VENOUS BLOOD PCO2 52.6 mmHg (35-63); VENOUS BLOOD PH 7.43 (7.30-7.42)
[2018-11-17 00:48] LABS: ANION GAP 8 (5-19); BLOOD UREA NITROGEN 51 mg/dL (7-20); CALCIUM 9.8 mg/dL (8.4-10.2); CARBON DIOXIDE 34 mmol/L (22-30); CHLORIDE 98 mmol/L (98-107); GLUCOSE 157 mg/dL (75-110); POTASSIUM 4.7 mmol/L (3.6-5.0); SODIUM 139.8 mmol/L (137-145)
--- NOTE | 2018-11-17 01:02 | RADIOLOGY REPORT (SQ) ---
CLINICAL HISTORY: shortness of breath COMPARISON: 03/21/2019. TECHNIQUE: XR CHEST 1 VIEW 11/17/2018 12:09 AM CDT FINDINGS: The heart is enlarged. There are left axillary surgical clips. Lungs are clear without consolidation, atelectasis, mass or edema. There is no pleural effusion. There is no pneumothorax. There are no acute osseous findings. IMPRESSION: Clear lungs.
[2018-11-17 04:18] VITALS: BP 163/62
--- NOTE | 2018-11-17 08:46 | EKG REPORT ---
SEVERITY:- ABNORMAL ECG - SINUS RHYTHM NONSPECIFIC INTRAVENTRICULAR CONDUCTION DELAY MINIMAL ST DEPRESSION, INFERIOR LEADS : Confirmed by: Tanesha Garcia 17-Nov-2018 08:45:56
== END 2018-11-17 03:30 | disposition home or self-care (01) ==
LOC: ER 23:46
DX: R06.2 Wheezing (principal); R06.02 Shortness of breath; R05 Cough; R06.00 Dyspnea, unspecified; I48.91 Unspecified atrial fibrillation; I50.9 Heart failure, unspecified; Z88.3 Allergy status to other anti-infective agents; Z88.6 Allergy status to analgesic agent; Z79.01 Long term (current) use of anticoagulants; Z79.82 Long term (current) use of aspirin
CPT/HCPCS: 93005; 94640; 99285; 36415; 85025; 80048; 84484; 82803; 71045; 93010; A9270; J7620

== ENCOUNTER → 2018-12-06 | Outpatient (CLI) | payer MEDICARE, OTHER | LOC: OD 09:28 | PROVIDERS: ATTEND Internal Medicine | DX: I11.0 Hypertensive heart disease with heart failure (principal); I50.32 Chronic diastolic (congestive) heart failure; E11.9 Type 2 diabetes mellitus without complications; Z53.8 Procedure and treatment not carried out for other reasons ==

== ENCOUNTER → 2018-12-11 | Outpatient (CLI) | payer MEDICARE, OTHER ==
[2018-12-11 09:54] LABS: ALANINE AMINOTRANSFERASE 28 U/L (9-52); ALBUMIN 3.5 g/dL (3.5-5.0); ALKALINE PHOSPHATASE 85 U/L (38-126); ANION GAP 7 (5-19); ASPARTATE AMINO TRANSFERASE 26 U/L (14-36); BILIRUBIN,DIRECT 0.3 mg/dL (0.0-0.4); BILIRUBIN,TOTAL 0.3 mg/dL (0.2-1.3); BLOOD UREA NITROGEN 19 mg/dL (7-20); CALCIUM 9.9 mg/dL (8.4-10.2); CARBON DIOXIDE 28 mmol/L (22-30); CHLORIDE 103 mmol/L (98-107); CHOLESTEROL 160.53 mg/dL (0-200); GLUCOSE 98 mg/dL (75-110); SODIUM 137.6 mmol/L (137-145); TOTAL PROTEIN 6.8 g/dL (6.3-8.2); TRIGLYCERIDES 68 mg/dL (<150)
[2018-12-11 10:05] LABS: DIRECT LDL 69 mg/dL (<100)
== END ==
LOC: OD 08:30
PROVIDERS: ATTEND Internal Medicine
DX: I48.0 Paroxysmal atrial fibrillation (principal); I11.0 Hypertensive heart disease with heart failure; I50.32 Chronic diastolic (congestive) heart failure; E11.9 Type 2 diabetes mellitus without complications; E68 Sequelae of hyperalimentation; R01.1 Cardiac murmur, unspecified; R06.09 Other forms of dyspnea; R09.89 Other specified symptoms and signs involving the circulatory and respiratory systems
CPT/HCPCS: 36415; 80053; 80061